=== PATIENT | male | born 1935 | race Caucasian/White ===

== ENCOUNTER 2019-06-04 11:32 | Inpatient (IN) | payer MEDICARE, SELFPAY ==
[2019-06-04] VITALS (21 sets, daily range): BP systolic 77–119; BP diastolic 33–90; PULSE 59–153; RESP 12–27; TEMP 35.9–37.1; O2SAT 92–100; BMI 24.6
--- NOTE | 2019-06-04 | DI.ECHO.S_ITS ---
[facility]---------+ [facility] +---------+ : : [address] : : : : [id number] : : : : Phone: [phone]+ Echocardiogram Report + + :Name: SINDI GALEAS Study Date: 06/05/2019 Height: 69 in : :[facility] Weight: 166 lb : : Gender: Male BSA: 1.9 m2 : :: 1935 Age: 83 yrs BP: 102/49 mmHg: :Reason For Study: AFIB : : Performed By: [facility] Staff : :Referring: MARINO PEREZ : + + Interpretation Summary Left ventricular systolic function is low normal with the ejection fraction visually estimated to be 50-55%. There is a significant dyssynchronous contraction pattern, consistent with a conduction abnormality but no obvious focal wall motion abnormalities. There is mild concentric left ventricular hypertrophy but diastolic function could not be accurately assessed due to contradictory data. The right ventricle is moderately dilated and systolic function is borderline reduced. Right ventricular systolic pressure is estimated to be at least 24 mmHg plus the clinically estimated CVP which cannot be estimated on this exam. The left atrium is moderately dilated and the right atrium is mildly dilated. There is moderate aortic valve sclerosis with mild aortic regurgitation but no aortic stenosis. There is mild tricuspid regurgitation and moderate pulmonic regurgitation. The aortic root and ascending aorta are mildly enlarged. The patient was in normal sinus rhythm during the exam. Procedure: A two-dimensional transthoracic echocardiogram with color flow and Doppler was performed. The study quality was technically difficult. There is no prior echocardiogram noted for this patient. The patient was in normal sinus rhythm during the exam. Left Ventricle: The left ventricle is normal in size. There is mild concentric left ventricular hypertrophy. Left ventricular systolic function is low normal. The ejection fraction is estimated to be 50-55%. There is a significant dyssynchronous contraction pattern, consistent with a conduction abnormality. There are no focal wall motion abnormalities. Diastolic function could not be accurately assessed due to contradictory data. Right Ventricle: The right ventricle is moderately dilated. Right ventricular systolic function is borderline reduced. Atria: The left atrium is moderately dilated. The right atrium is mildly dilated. The interatrial septum is intact with no evidence for an atrial septal defect. Mitral Valve: There is mild mitral annular calcification. The mitral valve leaflets are slightly calcified. There is trace mitral regurgitation. Aortic Valve: The aortic valve is trileaflet. There is moderate aortic valve sclerosis. The aortic valve opens well. There is no aortic valve stenosis. There is mild aortic regurgitation. Tricuspid Valve: The tricuspid valve is normal in structure and function. There is mild tricuspid regurgitation. Right ventricular systolic pressure is estimated to be 24 mmHg plus the clinically estimated CVP which cannot be estimated on this exam. Pulmonic Valve: The pulmonic valve is not well visualized. There is moderate pulmonic regurgitation. Great Vessels: The aortic root is mildly dilated. The ascending aorta is mildly enlarged. The pulmonary artery is normal size. The inferior vena cava was not well visualized. Pericardium/ Pleura There is no pericardial effusion. There is no pleural effusion. MMode/2D Measurements & Calculations LVIDd: 4.7 cm LVOT diam: 2.2 cm LVIDs: 3.4 cm Ao root diam: 4.2 cm FS: 27.7 % Aortic Jxn: 3.5 cm EPSS: 1.3 cm asc Aorta Diam: 3.7 cm IVSd: 1.2 cm LVPWd: 1.2 cm LV lincoln. diameter/BSA (cm/m^2): 2.5 LV sys. diameter/BSA (cm/m^2): 1.8 LA A2 area: 22.1 cm2 RA long axis: 5.7 cm LA A4 area: 26.5 cm2 RA area: 22.8 cm2 LA length (vol): 6.0 cm RA vol: 77.5 ml LA vol: 83.3 ml RA : 40.6 ml/m2 LA vol index: 43.6 ml/m2 TAPSE: 1.8 cm Doppler Measurements & Calculations Ao V2 max: 125.6 cm/sec LVOT Max Miko: 81.9 cm/sec Ao V2 mean: 80.4 cm/sec LV V1 max P.7 mmHg Ao max P.3 mmHg LV V1 VTI: 19.1 cm Ao mean P.1 mmHg ALVARADO(I,D): 2.7 cm2 Ao V2 VTI: 26.3 cm ALVARADO(V,D): 2.4 cm2 sev ratio: 0.73 ALVARADO indexed to BSA (cm^2/m^2): 1.4 MV E max miko: 38.8 cm/sec TR max miko: 246.3 cm/sec MV A max miko: 35.3 cm/sec TR max P.3 mmHg MV E/A: 1.1 PA V2 max: 86.4 cm/sec Med Peak E' Miko: 4.9 cm/sec PA V2 mean: 49.2 cm/sec E/E' med: 8.0 PA mean P.2 mmHg Lat Peak E' Miko: 8.4 cm/sec PA Accel Time: 0.09 sec E/E' lat: 4.6 E/e' average: 6.3 MV dec time: 0.23 sec SV(LVOT): 70.1 ml Reading Physician:SHANNON
--- NOTE | 2019-06-04 11:37 | ED.SOB ---
HPI - SOB/Dyspnea General Chief Complaint: Shortness of Breath/Dyspnea Stated Complaint: SOB, hypotension Time Seen by Provider: 06/04/19 11:37 Source: patient and EMS Mode of arrival: EMS Limitations: no limitations History of Present Illness HPI Narrative: 83-year-old male comes to the emergency department with complaint of shortness of breath. EMS states is heart rates in the 150s. Here in the department he is 72. Was the department he flipped back and/or heart rate of 130 and then flipped back into a sinus rhythm. Patient appears to be in a flutter. Patient has a known history of atrial fibrillation. He has known metastatic melanoma. He is currently supposed to be screaming immunotherapy but this has been held as he has had an infection in his right upper extremity and is on IV antibiotics. Patient's states that he was started on metoprolol for his a fibrillation. Patient complaining of shortness of breath, no chest pain or pressure. He does not feel lightheaded. He does not feel nauseated. He denies any GI or urinary symptoms. No swelling in his extremities. Related Data Home Medications Medication Instructions Recorded Confirmed Lactobacillus acidophilus 2 tab PO DAILY 06/04/19 06/04/19 [Acidophilus] apixaban 5 mg PO BID 06/04/19 06/04/19 calcium carbonate 1,000 mg PO BID PRN 06/04/19 06/04/19 cefazolin in 0.9% sod chloride 2 g IV Q8H 06/04/19 06/04/19 dexamethasone 4 mg PO AC 06/04/19 06/04/19 docusate sodium [Colace] 100 mg PO BID 06/04/19 06/04/19 furosemide 20 mg PO BID 06/04/19 06/04/19 insulin aspart U-100 [Novolog unit SUBCUT PRN 06/04/19 Flexpen U-100 Insulin] ketorolac [Acular] 1 drp EYE-RIGHT QID 06/04/19 06/04/19 levothyroxine 50 mcg PO DAILY 06/04/19 06/04/19 metoprolol succinate 50 mg PO DAILY 06/04/19 06/04/19 polyethylene glycol 3350 17 g PO DAILY PRN 06/04/19 06/04/19 prednisolone acetate (PF) 1 drp EYE-RIGHT BID PRN 06/04/19 06/04/19 tamsulosin 0.4 mg PO DAILY 06/04/19 06/04/19 Allergies Allergy/AdvReac Type Severity Reaction Status Date / Time No Known Drug Allergies Allergy Verified 06/04/19 11:56 Patient History Medical History (Updated 06/04/19 @ 19:18 by Mariia Goldstein RN) Atrial fibrillation (Acute) Drop foot gait (Acute) Headache (Acute) Hypothyroidism (Acute) 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 HEENT: Head normocephalic, atraumatic, EOMI, pupils reactive, face symmetric, moist mucous membranes NECK: Supple, full range of motion CARDIOVASCULAR: Regular rate and rhythm without murmurs, rubs or gallops. No JVD. No swelling in lower extremities. RESPIRATORY: Breath sounds equal bilaterally, no wheezes rales or rhonchi. No tachypnea or accessory muscle use. ABDOMEN: Soft, nontender. Normoactive bowel sounds all 4 quadrants. No guarding or rebound, rigidity, no mass : No CVA tenderness EXTREMITIES: Normal range of motion, no clubbing or edema. Neurovascularly intact NEUROLOGICAL: Cranial nerves II through XII grossly intact. Moving all extremities SKIN: Warm, dry, no petechiae, Initial Vital Signs Initial Vital Signs: Vital Signs Pulse Rate 80 06/04/19 11:40 Respiratory Rate 27 H 06/04/19 11:40 Blood Pressure 108/60 06/04/19 11:40 Pulse Oximetry 100 06/04/19 11:40 Course Orders Ordered: ED Orders 06/04/19 11:38 XR chest 1V Stat EKG-12 Lead Stat 06/04/19 12:55 Complete Blood Count AUTO DIFF Stat Comprehensive Metabolic Panel Stat Magnesium Stat Partial Thromboplastin Time Stat Prothrombin Time INR Stat Thyroid Stimulating Hormone Stat Troponin & CK Cardiac Panel Stat Sodium Chloride (Normal Saline 0.9%) 500 mls @ 21 mls/hr IV CONT ARSALAN Last Admin: 06/04/19 13:34 Dose: 21 mls/hr Documented by: QUINN DILTIAZEM (Diltiazem 125 Mg/125 Ml-D5w) 125 mg in 125 mls @ 5 mls/hr IV TITRATE ARSALAN; Protocol Last Titration: 06/04/19 19:15 Dose: 0 mg/hr, 0 mls/hr Documented by: Admin: 06/04/19 15:49 Dose: 5 mg/hr, 5 mls/hr Documented by: QUINN Potassium Chloride 40 meq/ (Sodium Chloride) 520 mls @ 130 mls/hr IV NOW ONE Stop: 06/04/19 23:59 Last Admin: 06/04/19 20:16 Dose: 130 mls/hr Documented by: EM Cosigned by: MARGARET Discontinued Medications Aspirin (Aspirin Chew) 324 mg PO NOW ONE Stop: 06/04/19 13:58 Last Admin: 06/04/19 14:54 Dose: 324 mg Documented by: QUINN Diltiazem HCl (Cardizem) 10 mg IV NOW ONE Stop: 06/04/19 14:58 Last Admin: 06/04/19 15:48 Dose: 10 mg Documented by: QUINN Sodium Chloride (Normal Saline 0.9%) 1,000 mls @ 1,000 mls/hr IV BOLUS ONE Stop: 06/04/19 12:36 Last Infusion: 06/04/19 13:21 Dose: 0 mls/hr Documented by: Admin: 06/04/19 12:22 Dose: 1,000 mls/hr Documented by: QUINN Potassium Chloride 40 meq/ (Sodium Chloride) 520 mls @ 130 mls/hr IV NOW ONE Stop: 06/04/19 17:56 Last Admin: 06/04/19 14:48 Dose: 130 mls/hr Documented by: QUINN Cosigned by: DARRYL Metoprolol Tartrate (Lopressor) 5 mg IV NOW ONE Stop: 06/04/19 12:00 Last Admin: 06/04/19 12:15 Dose: 5 mg Documented by: QUINN Vital Signs Vital signs: Vital Signs - 8 hr 06/04/19 12:30 06/04/19 14:00 06/04/19 15:00 Pulse Rate 67 63 66 Respiratory Rate 26 H 17 20 Blood Pressure Blood Pressure [Left Arm] 90/42 L 119/90 89/60 L Pulse Oximetry 100 97 92 06/04/19 15:48 Pulse Rate 133 H Respiratory Rate Blood Pressure 100/51 L Blood Pressure [Left Arm] Pulse Oximetry MDM - SOB/Dyspnea Lab Data Attestation: I reviewed the patient's lab results. Result diagrams: 06/04/19 12:55 06/04/19 12:55 Labs: Lab Results 06/04/19 06/04/19 06/04/19 Range/Units 12:55 12:55 12:55 WBC 11.3 H (4.5-11.0) X10^3/uL RBC 3.34 L (4.5-5.9) X10^6/uL Hgb 10.8 L (13.5-17.5) g/dL Hct 31.6 L (41-53) % MCV 94.6 (80-100) fL MCH 32.3 (26-34) PG MCHC 34.1 (30-36) % RDW 18.1 H (11.6-14.8) % Plt Count 198 (150-400) X10^3/uL Neut % (Auto) Not Reportable Lymph % (Auto) Not Reportable [place] % (Auto) Not Reportable Eos % (Auto) Not Reportable Baso % (Auto) Not Reportable Lymph # (Auto) Not Reportable [place] # (Auto) Not Reportable Baso # (Auto) Not Reportable Total Counted 100 Seg Neutrophils % 81.0 H (38-70) % Band Neutrophils % 6.0 (3-7) % Lymphocytes % (Manual) 6.0 L (25-45) % Monocytes % (Manual) 4.0 (2-11) % Metamyelocytes % 2.0 H (-0) % Myelocytes % 1.0 H (-0) % Neutrophils # (Manual) 9831 H (6801-8394) /uL Nucleated RBCs 1 H ( - 0) #/Diff RBC Morphology See below Polychromasia 1+ H Poikilocytosis 1+ H Anisocytosis 1+ H PT 21.7 H (10.1-12.7) SECONDS INR 1.9 H (0.9-1.3) APTT 27 (26.4-36.2) SECONDS Sodium 137 (137-145) mmol/L Potassium 2.9 L (3.4-5.1) mmol/L Chloride 103 (98-107) mmol/L Carbon Dioxide 23 (22-32) mmol/L BUN 27 H (9-20) mg/dL Creatinine 0.70 (0.66-1.25) mg/dL Estimated GFR > 60.0 (>60) mL/min BUN/Creatinine Ratio 38.6 H (6-22) Glucose 302 H (80-110) mg/dL Calcium 7.4 L (8.4-10.2) mg/dL Magnesium (1.6-2.3) mg/dL Total Bilirubin 0.5 (0.2-1.3) mg/dL AST 34 (17-59) IU/L ALT 19 (<50) IU/L Alkaline Phosphatase 195 H (38-126) U/L Total Creatine Kinase (55-170) U/L CK-MB (CK-2) CK-MB (CK-2) Rel Index Troponin I (0.01-0.034) ng/mL Total Protein 4.7 L (6.3-8.2) g/dL Albumin 2.5 L (3.5-5.0) g/dL Globulin 2.2 (1.7-4.1) g/dL Albumin/Globulin Ratio 1.1 (1.0-2.8) TSH (0.47-4.68) uIU/mL 06/04/19 06/04/19 Range/Units 12:55 12:55 WBC (4.5-11.0) X10^3/uL RBC (4.5-5.9) X10^6/uL Hgb (13.5-17.5) g/dL Hct (41-53) % MCV (80-100) fL MCH (26-34) PG MCHC (30-36) % RDW (11.6-14.8) % Plt Count (150-400) X10^3/uL Neut % (Auto) Lymph % (Auto) [place] % (Auto) Eos % (Auto) Baso % (Auto) Lymph # (Auto) [place] # (Auto) Baso # (Auto) Total Counted Seg Neutrophils % (38-70) % Band Neutrophils % (3-7) % Lymphocytes % (Manual) (25-45) % Monocytes % (Manual) (2-11) % Metamyelocytes % (-0) % Myelocytes % (-0) % Neutrophils # (Manual) (1115-7969) /uL Nucleated RBCs ( - 0) #/Diff RBC Morphology Polychromasia Poikilocytosis Anisocytosis PT (10.1-12.7) SECONDS INR (0.9-1.3) APTT (26.4-36.2) SECONDS Sodium (137-145) mmol/L Potassium (3.4-5.1) mmol/L Chloride (98-107) mmol/L Carbon Dioxide (22-32) mmol/L BUN (9-20) mg/dL Creatinine (0.66-1.25) mg/dL Estimated GFR (>60) mL/min BUN/Creatinine Ratio (6-22) Glucose (80-110) mg/dL Calcium (8.4-10.2) mg/dL Magnesium 2.1 (1.6-2.3) mg/dL Total Bilirubin (0.2-1.3) mg/dL AST (17-59) IU/L ALT (<50) IU/L Alkaline Phosphatase (38-126) U/L Total Creatine Kinase 28 L (55-170) U/L CK-MB (CK-2) TNP CK-MB (CK-2) Rel Index TNP Troponin I 0.112 H (0.01-0.034) ng/mL Total Protein (6.3-8.2) g/dL Albumin (3.5-5.0) g/dL Globulin (1.7-4.1) g/dL Albumin/Globulin Ratio (1.0-2.8) TSH 2.11 (0.47-4.68) uIU/mL Imaging Data Chest x-ray: Radiologist's impression: [address] [address] XRay Report Signed Patient: Vanessa Davila KMR#: [id number] : 5Acct:[id number] Age/Sex: 83 / MDate of Service: 06/04/19 Loc: ED Accession Number: [id number] Procedure: XR chest 1V Ordering Provider: Earline Jorge D.O. PROCEDURE: XR CHEST 1V INDICATIONS: fast heart beat, short of breath TECHNIQUE: One view of the chest was acquired. COMPARISON: None. FINDINGS: Surgical changes and devices: There is a right-sided chest port seen, the tip seen near the cavoatrial junction and Lungs and pleura: Lungs are clear. No pleural effusions or pneumothorax. Mediastinum: The cardiac contours are within normal limits. The aorta demonstrates calcification and tortuosity. Bones and chest wall: Age-appropriate bony degenerative changes are seen. No suspicious bony lesions. Overlying soft tissues appear unremarkable. IMPRESSION: No acute cardiopulmonary process is seen. Postoperative and degenerative changes are seen. Dictated by: Jass Hsu M.D. on 06/04/2019 at 11:24 Approved by: Jass Hsu M.D. on 06/04/2019 at 11:25 ECG Data Attestation: I personally reviewed and interpreted this ECG as follows: Interpretation: Sinus rhythm rate of 73 P are 152, QRS of 107 and QTC of 447. Patient has indeterminate ST changes. EKG from shows atrial flutter, rate of 134 QRS of 128 QTC of 372. MDM Narrative Medical decision making narrative: Patient is intermittently in and out of in a regular rhythm that is tachycardic and I suspect atrial flutter although it appeared quite regular and almost SVT like in his telemetry strip from EMS. Patient given 1 dose of metoprolol in the department as his pressure has been tolerating. Patient was given aspirin, potassium is out to be 2.9. This is likely the cause of his irregular rhythm being exacerbated. His troponin is 0.112 I do not have any priors for comparison, this could be secondary to demand ischemia as patient states he has felt short of breath and his heart rate was fast overnight. But he could also be having coronary issues. Patient's TSH is pending. CXR shows no acute process. Case was discussed with Dr. Modi, she reviewed patient's echo and feels Cardizem would be appropriate drip for rate control. We also discussed that he is on Eliquis for history of pulmonary emboli. He has multiple medical issues including an active infection in his upper extremity which he is receiving IV antibiotics, metastatic melanoma with metastases to his brain. And it is unclear what sort of intervention would be used if he needed any from a cardiac standpoint. I spoke with Dr. augustine, gave her cardiology's recommendations and she accepts patient although she would like for him to be more stable with his heart rate 90-100 before he comes to the ICU. Discharge Plan Departure Patient Disposition: Admitted As Inpatient Clinical Impression: Atrial fibrillation with rapid ventricular response Discharge Date/Time: 06/04/19 19:45 Admit Date/Time: 06/04/19 16:01 Admit Provider: Danna Gutiérrez
[2019-06-04] MEDS: METOPROLOL TARTRATE 5 MG/5 ML INJ IV (12:15)
[2019-06-04] MEDS: SODIUM CHLORIDE 0.9% 1,000 ML 1000 ML IV (12:22)
[2019-06-04 13:12] LABS: INR 1.9 (0.9-1.3); Prothrombin Time 21.7 SECONDS (10.1-12.7)
[2019-06-04 13:15] LABS: PTT Partial Thromboplastin Tim 27 SECONDS (26.4-36.2)
[2019-06-04 13:17] LABS: Creatine Kinase 28 U/L (55-170); Hematocrit 31.6 % (41-53); Hemoglobin 10.8 g/dL (13.5-17.5); Magnesium 2.1 mg/dL (1.6-2.3); Mean Corpuscular HGB Conc 34.1 % (30-36); Mean Corpuscular Hemoglobin 32.3 PG (26-34); Mean Corpuscular Volume 94.6 fL (80-100); Platelet Count 198 X10^3/uL (150-400); Red Blood Cell Count 3.34 X10^6/uL (4.5-5.9); Red Cell Distribution Width 18.1 % (11.6-14.8); White Blood Cell Count 11.3 X10^3/uL (4.5-11.0)
[2019-06-04 13:19] LABS: Add Manual Diff / Slide Review YES
[2019-06-04 13:30] LABS: Albumin 2.5 g/dL (3.5-5.0); Albumin Globulin Ratio 1.1 (1.0-2.8); Alkaline Phosphatase 195 U/L (38-126); Aspartate Aminotransferase 34 IU/L (17-59); BUN Creatinine Ratio 38.6 (6-22); Bilirubin Total 0.5 mg/dL (0.2-1.3); Blood Urea Nitrogen 27 mg/dL (9-20); Calcium 7.4 mg/dL (8.4-10.2); Carbon Dioxide 23 mmol/L (22-32); Chloride 103 mmol/L (98-107); Estimated Glomerular Filt Rate > 60.0 mL/min (>60); Globulin 2.2 g/dL (1.7-4.1); Glucose 302 mg/dL (80-110); HEMOLYSIS < 15 (0-50); Potassium 2.9 mmol/L (3.4-5.1); Sodium 137 mmol/L (137-145); Total Protein 4.7 g/dL (6.3-8.2); Troponin I 0.112 ng/mL (0.01-0.034)
[2019-06-04] MEDS: SODIUM CHLORIDE 0.9% 500 ML 21 ML IV (13:34)
--- NOTE | 2019-06-04 13:34 | PC.NURSE ---
I assisted patient to stand at bedside with Karly MENDES while changing out his bedding which had urine on it.
[2019-06-04 13:37] LABS: Alanine Aminotransferase 19 IU/L (<50)
[2019-06-04 13:58] LABS: Neutrophils Absolute Manual 9831 /uL (3000-5900); Nucleated Red Blood Cells 1 #/Diff; Total Cells Counted 100
[2019-06-04 13:59] LABS: Anisocytosis 1+; Poikilocytosis 1+; Polychromasia 1+
[2019-06-04] MEDS: POTASSIUM CHLORIDE 40 MEQ in SODIUM CHLORIDE 0.9% 500 ML 130 ML IV ×2 (14:48→20:16)
[2019-06-04] MEDS: ASPIRIN 81 MG CHEW TAB 324 MG PO (14:54)
[2019-06-04] MEDS: dilTIAZem 5 MG/ML SDV 10 MG IV (15:48)
[2019-06-04] MEDS: DILTIAZEM 125 MG/125 ML PIGGYBACK IV (15:49)
[2019-06-04 17:10] LABS: Thyroid Stimulating Hormone 2.11 uIU/mL (0.47-4.68)
--- NOTE | 2019-06-04 19:46 | PC.NURSE ---
Patient constantly bouncing in and out of A. Flutter at rate of 120-150 and Sinus Emanuel at 50-60BPM. This is an ongoing problem per patient and his . Also reports increasing shortness of breath.
--- NOTE | 2019-06-04 20:39 | PC.NURSE ---
Addendum entered by Mariia Goldstein R.N. 06/04/19 22:32: 2100 - Suppository given. Pt reports urge to have BM shortly following administration. Large soft formed stool. Pt denies urge to void at this time. IV infusing. Original Note: 1829 - Pt to room for ER. Transfer to bed via slider board. Pt is a poor historian. Admission assessment done with pt's assistance. Pt with multiple skin issues. Pictures taken. Wounds to right UE cleansed and redressed. 1914 - Pt BP down to 87/33, HR 60. Cardizem gtt tirated to off. Pt denies lightheadedness or chest pain. Potassium infusion complete. Monitor.
--- NOTE | 2019-06-04 21:18 | PM.HP.1 ---
History of Present Illness History of Present Illness Date Patient Seen: 06/04/19 Time Patient Seen: 19:50 Chief complaint: SOB, hypotension Narrative: Mr. 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 The patient currently resides at [facility] for rehabilitation. The patient is a difficult historian and his is at bedside to facilitate obtaining medical history. He states he developed prep heartbeat with a shortness of breath this afternoon. Has a history of atrial fibrillation and is on anticoagulation with Eliquis related to history of pulmonary embolism. He reports no complaints of chest pain, nausea or vomiting. The patient's clinical picture is complicated by ongoing steroid therapy for metastatic melanoma with metastases to the brain and associated hyperglycemia. He has chronic septic olecranon bursitis preventing continuation of his prior immunotherapy. He has 3 wounds to the right upper extremity reportedly from surgical biopsy last Tuesday with a stitch in place without redness or inflammation. The patient reports no complaints of fevers or chills and denies headaches or visual changes. He has no nasal congestion or sore throat. He has no chest pain but reports shortness of breath with rapid heart rate. He denies cough or wheezing. He describes baseline shortness of breath but attributes it to being inactive and has been on bed rest at [facility]. Denies abdominal pain but reports constipation having only 1 small bowel movement in the last week. He denies urinary symptoms and endorses nocturia 4 times nightly. Patient has right footdrop and has had frequent falls. He has a walker and cane at home and has had an AFO constructed which he is not yet received. Upon arrival in the ER the patient is afebrile with temperature 97.3? with heart rate of 153, blood pressure of 94/52, respirations of 25 saturating 100% and unknown if on supplemental oxygen. A chest x-ray was obtained which finds no acute cardiopulmonary findings and notes implanted port right upper chest. On laboratory analysis he has white count of 11.3, hemoglobin 10.8, hematocrit of 31.6 with platelets of 198. He has increased neutrophils at 81%. His PT is 21.7 with an INR of 1.9 and a PTT of 27. On chemistry he is notably low on potassium at 2.9 and appears dry with a BUN of 27 with a creatinine of 0.7. His nonfasting glucose is 302. His magnesium is 2.1. His LFTs are within normal limits save for alkaline phosphatase elevated at 195. His troponin is elevated at 0.112. In the ER the patient received aspirin 325 mg, metoprolol 5 mg IV push, with transient resolution of rhythm only to return back in atrial fibrillation and given diltiazem 10 mg IV and started on a drip at 5 mg. He also received normal saline 1 L and was treated with potassium 40 mEq. Patient is admitted to the medicine service with atrial fibrillation, shortness of breath and hypokalemia. Patient History Medical History (Updated 06/04/19 @ 21:42 by YUMI Fields) Atrial fibrillation (Acute) Cataract (Acute) Drop foot gait (Acute) Headache (Acute) Hypothyroidism (Acute) Malignant melanoma (Acute) Melanoma metastatic to brain (Acute) Pulmonary embolism (Acute) Septic olecranon bursitis of right elbow (Acute) Status post gamma knife treatment (Acute) Surgical History (Updated 06/04/19 @ 21:42 by YUMI Fields) History of local excision of skin lesion (Acute) History of vascular access device (Acute) Family & Social History Family History (Updated 06/04/19 @ 21:45 by YUMI Fields) Father Alcohol abuse Mother Obesity Brother No known problems Sister No known problems Social History: household members other Prior Living Arrangements 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 Patient is presently a patient at [facility] (formerly [facility]) for rehabilitation. Patient has difficulty recalling family medical history but denies family history of cancer, hypertension, heart or kidney disease. Smoking: Patient endorses a 30 year pack history smoking 1 pack per day from age 19 to age 49. Alcohol: Patient endorses occasional alcohol drinking Tequila. Substance use: Patient denies recreational pharmaceuticals, herbal or cannabis products. Advanced directives: The patient has formal advanced directives which is will bring in. At this time the patient states his wish to be FULL CODE, but does not wish to have prolonged aggressive treatment or long-term life support. He designates his Rocio Varela, to be his surrogate decision maker. Meds Home Medications and Allergies Home Medications Medication Instructions Recorded Confirmed Type Lactobacillus acidophilus 2 tab PO DAILY 06/04/19 06/04/19 History [Acidophilus] apixaban 5 mg PO BID 06/04/19 06/04/19 History calcium carbonate 1,000 mg PO BID PRN 06/04/19 06/04/19 History cefazolin in 0.9% sod chloride 2 g IV Q8H 06/04/19 06/04/19 History dexamethasone 4 mg PO AC 06/04/19 06/04/19 History docusate sodium [Colace] 100 mg PO BID 06/04/19 06/04/19 History furosemide 20 mg PO BID 06/04/19 06/04/19 History insulin aspart U-100 [Novolog unit SUBCUT PRN 06/04/19 History Flexpen U-100 Insulin] ketorolac [Acular] 1 drp EYE-RIGHT QID 06/04/19 06/04/19 History levothyroxine 50 mcg PO DAILY 06/04/19 06/04/19 History metoprolol succinate 50 mg PO DAILY 06/04/19 06/04/19 History polyethylene glycol 3350 17 g PO DAILY PRN 06/04/19 06/04/19 History prednisolone acetate (PF) 1 drp EYE-RIGHT BID PRN 06/04/19 06/04/19 History tamsulosin 0.4 mg PO DAILY 06/04/19 06/04/19 History Allergies Allergy/AdvReac Type Severity Reaction Status Date / Time No Known Drug Allergies Allergy Verified 06/04/19 11:56 Review of Systems Review of Systems ROS Unobtainable: All systems reviewed & are unremarkable except as noted in HPI and below Exam Vital Signs (past 8 hours): - 06/04/19 14:00 06/04/19 15:00 06/04/19 15:48 Pulse Rate 63 66 133 H Respiratory Rate 17 20 Blood Pressure 100/51 L Blood Pressure [Left Arm] 119/90 89/60 L Pulse Oximetry 97 92 06/04/19 16:20 06/04/19 16:33 06/04/19 16:50 Pulse Rate 67 59 L 75 Respiratory Rate 19 19 22 Blood Pressure Blood Pressure [Left Arm] 85/55 L 84/52 L 92/54 L Pulse Oximetry 100 94 97 06/04/19 17:20 06/04/19 17:50 Pulse Rate 73 74 Respiratory Rate 22 17 Blood Pressure Blood Pressure [Left Arm] 90/48 L 93/47 L Pulse Oximetry 100 100 Oxygen Delivery Method Room Air Narrative Exam Narrative: GENERAL APPEARANCE: well developed, well nourished, in no acute distress. HEENT: Normocephalic, PERRLA, conjunctiva clear, EOMs intact without nystagmus, no sinus tenderness to percussion, no rhinorrhea, mucous membranes are moist and pink without lesions or exudate. NECK/THYROID: neck supple, no JVD, no carotid bruit, no thyromegaly, trachea midline. LYMPH NODES: no cervical or supraclavicular lymphadenopathy. SKIN: [place], warm and dry, multiple areas of ecchymosis, healing skin tear right christian, healing surgical rooms right forearm,pressure sores bilateral buttocks, small ulceration heel. HEART: regular rate and rhythm, S1-S2, no murmur, no rubs or gallops, brisk capillary refill, trace pedal edema LUNGS: clear to auscultation bilaterally, no coarseness crackles or wheezing, positive nonproductive cough on deep inspiration. CHEST: Symmetrical movement, no accessory muscle use, no pain to AP and lateral compression. ABDOMEN: Soft, no distention, dull to percussion, left lower quadrant abdominal tenderness, no guarding or peritoneal signs, no organomegaly, no flank or suprapubic tenderness, active bowel tones. BACK: Normal curvature, nontender to palpation, no CVA tenderness on percussion EXTREMITIES: moves all extremities, strength is 5/5 and symmetrical, no deformities or joint effusions. NEUROLOGIC: AAO x person place time and situation, impaired memory and recall, cranial nerves II-XII grossly intact, sensation intact to light touch, hearing grossly normal to speech. PSYCH: alert, pleasant and cooperative, good eye contact, appropriate with stable behavior Objective Labs Result Diagrams: 06/04/19 12:55 06/04/19 12:55 Labs: Laboratory Results - last 24 hr 06/04/19 06/04/19 06/04/19 12:55 12:55 12:55 WBC 11.3 H RBC 3.34 L Hgb 10.8 L Hct 31.6 L MCV 94.6 MCH 32.3 MCHC 34.1 RDW 18.1 H Plt Count 198 Neut % (Auto) Not Reportable Lymph % (Auto) Not Reportable [place] % (Auto) Not Reportable Eos % (Auto) Not Reportable Baso % (Auto) Not Reportable Lymph # (Auto) Not Reportable [place] # (Auto) Not Reportable Baso # (Auto) Not Reportable Total Counted 100 Seg Neutrophils % 81.0 H Band Neutrophils % 6.0 Lymphocytes % (Manual) 6.0 L Monocytes % (Manual) 4.0 Metamyelocytes % 2.0 H Myelocytes % 1.0 H Neutrophils # (Manual) 9831 H Nucleated RBCs 1 H RBC Morphology See below Polychromasia 1+ H Poikilocytosis 1+ H Anisocytosis 1+ H PT 21.7 H INR 1.9 H APTT 27 Sodium 137 Potassium 2.9 L Chloride 103 Carbon Dioxide 23 BUN 27 H Creatinine 0.70 Estimated GFR > 60.0 BUN/Creatinine Ratio 38.6 H Glucose 302 H Calcium 7.4 L Magnesium Total Bilirubin 0.5 AST 34 ALT 19 Alkaline Phosphatase 195 H Total Creatine Kinase CK-MB (CK-2) CK-MB (CK-2) Rel Index Troponin I Total Protein 4.7 L Albumin 2.5 L Globulin 2.2 Albumin/Globulin Ratio 1.1 TSH 06/04/19 06/04/19 12:55 12:55 WBC RBC Hgb Hct MCV MCH MCHC RDW Plt Count Neut % (Auto) Lymph % (Auto) [place] % (Auto) Eos % (Auto) Baso % (Auto) Lymph # (Auto) [place] # (Auto) Baso # (Auto) Total Counted Seg Neutrophils % Band Neutrophils % Lymphocytes % (Manual) Monocytes % (Manual) Metamyelocytes % Myelocytes % Neutrophils # (Manual) Nucleated RBCs RBC Morphology Polychromasia Poikilocytosis Anisocytosis PT INR APTT Sodium Potassium Chloride Carbon Dioxide BUN Creatinine Estimated GFR BUN/Creatinine Ratio Glucose Calcium Magnesium 2.1 Total Bilirubin AST ALT Alkaline Phosphatase Total Creatine Kinase 28 L CK-MB (CK-2) TNP CK-MB (CK-2) Rel Index TNP Troponin I 0.112 H Total Protein Albumin Globulin Albumin/Globulin Ratio TSH 2.11 Assessment & Plan Assessment & Plan narrative: This is an 83-year-old male patient with multiple medical problems who presents to the ER with atrial fibrillation with RVR and shortness of breath, hypokalemia likely precipitating atrial fibrillation, hyperglycemia and Lasix therapy likely precipitating hypokalemia. 1. Persistent atrial fibrillation with RVR, acute, present on admission, active. -patient with onset of rapid AFib with shortness of breath today with a prior history of atrial fibrillation requiring previous treatment for resolution of rhythm. -patient takes metoprolol succinate 50 mg daily for rhythm control. . -patient is found to be hypokalemic on Lasix therapy without potassium repletion, potassium is 2.9 likely precipitating his arrhythmia, magnesium is 2.1. -in the ER the patient received metoprolol 5 mg with transient conversion and subsequent return to atrial fibrillation treated with KCl 40 mEq and diltiazem 10 mg IV followed by continuous infusion with hypotension, patient received 1 L normal saline bolus. -the patient is admitted to the ICU on a diltiazem drip. Diltiazem infusion discontinue at 6:15 p.m. following conversion to sinus rhythm and blood pressure of 87/53. -ordered KCl 40 mEq IV, recheck BMP and Mag level at midnight. -normal saline 75 cc/hour infusing with potassium at 133 cc per hour for rehydration. Will closely monitor fluid status. -metoprolol 12.5 mg p.o. x1 when blood pressure improves then continue metoprolol succinate 50 mg daily. 2. Elevated troponin, acute, present on admission, active -patient's elevated troponin at 0.112 likely related to demand ischemia in the absence of chest pain with no ischemia or infarct on EKG. -Recheck troponin at midnight and then as needed. 3. Current use long-term anticoagulation, chronic, present on admission, active. -patent with history of paroxysmal atrial fibrillation and prior history of pulmonary emboli. -continue current regimen of apixaban 5 mg twice daily. 4. Hypokalemia, acute, present on admission, active. -the patient is presently on Lasix 20 mg twice daily and appears clinically dry. Trace bilateral lower extremity edema, no history of CHF, lungs clear to auscultation, chest x-ray without pulmonary edema and no cardiomegaly. -hold Lasix, replete potassium, 40 mEq given in ER additional 40 mEq ordered in ICU. -recheck BMP for adequacy of repletion at midnight and with morning labs. 5. Hyperglycemia, steroid induced, chronic, present on admission, active. -the patient receives dexamethasone 4 mg p.o. 3 times daily for treatment of metastatic brain tumor. -glucose on admission is 302 without history of diabetes prior to steroid therapy. Elevated blood sugar likely increasing diuresis and potassium loss. -blood sugar checks AC and HS, covered with correctional insulin low-dose range. -heart healthy diet with constant carbohydrate diet medium range. 6. Septic olecranon bursitis, chronic, present on admission, stable. -continue cefazolin 2 g IV every 8 hours. 7. Malignant melanoma, status post excision, active. -patient with metastatic brain lesion currently on dexamethasone therapy. -status post gamma knife procedure, subsequent course of immunotherapy interrupted related to problem #5 above. -skin biopsies right arm with retained suture, wound healing cleanly without signs of infection. 8. Constipation, chronic, present on admission, active. -patient with left lower quadrant abdominal pain on palpation, patient reports very small stool 3 days ago, stool clean from patient's buttock upon admission to ICU. -docusate 100 mg twice daily, MiraLax 17 g daily as needed, Dulcolax 10 mg p.r. x1 now and daily as needed. 9. Hypothyroidism, acquired, chronic, stable -continue current therapy of levothyroxine 50 mcg daily. 10. Frequent falls, acute, present on admission, active. -patient with a healing skin tear right christian without active bleeding, multiple ecchymotic areas. -patient with right foot drop, AFO has been constructed but not yet picked up. -PT and OT to evaluate and treat. 11. Pressure wounds, buttock is and heels, prior to admission, active. -turn reposition patient every 2 hours, float heels on pillows -barrier cream to wounds on buttock and heel. -out of bed to chair for meals. PTE prophylaxis: Bilateral SCDs, anticoagulated on Eliquis. The patient is admitted to the hospital for management of multiple interacting medical problems, severity symptoms and risk of complications and adverse events. The patient is admitted as observation status with expected length of stay to be less than 2 midnights. Scores GCS Tera coma scale eye opening: Spontaneous Tera coma scale verbal response: Orientated [place] coma scale motor response: Obey commands Tera coma scale total score: 15 Quality VTE Deep Vein Thrombosis/Pulmonary Embolism Present on Admission: Yes
[2019-06-04] MEDS: DOCUSATE 100 MG CAPSULE PO (21:19)
[2019-06-04] MEDS: BISACODYL 10 MG SUPP PR (21:19)
[2019-06-04] MEDS: SODIUM CHLORIDE 0.9% 1,000 ML 75 ML IV (21:20)
[2019-06-04] MEDS: KETOROLAC 0.5% OPHTH DROPS 5 ML 1 DROPS EYE-RIGHT (21:20)
[2019-06-04] MEDS: APIXABAN 5 MG TABLET PO (21:22)
[2019-06-04] MEDS: INSULIN ASPART 100 UNIT/ML INSULN PEN SUBCUT (21:22)
[2019-06-04] MEDS: CEFAZOLIN 2 GM/100 ML FROZ.PIGGY IV (21:22)
[2019-06-05] VITALS (21 sets, daily range): BP systolic 74–135; BP diastolic 31–72; PULSE 56–144; RESP 14–28; TEMP 36.2–36.6; O2SAT 92–97; BMI 24.7
[2019-06-05 00:03] LABS: Magnesium 1.9 mg/dL (1.6-2.3)
[2019-06-05 00:04] LABS: BUN Creatinine Ratio 33.8 (6-22); Blood Urea Nitrogen 27 mg/dL (9-20); Calcium 7.2 mg/dL (8.4-10.2); Carbon Dioxide 24 mmol/L (22-32); Chloride 109 mmol/L (98-107); Estimated Glomerular Filt Rate > 60.0 mL/min (>60); Glucose 225 mg/dL (80-110); HEMOLYSIS < 15 (0-50); Potassium 4.1 mmol/L (3.4-5.1); Sodium 139 mmol/L (137-145)
[2019-06-05 00:16] LABS: Troponin I 0.079 ng/mL (0.01-0.034)
--- NOTE | 2019-06-05 01:10 | PC.NURSE ---
Addendum entered by Tammie Varma R.N. 06/05/19 04:46: Had another short episode of self limiting A-Fib, YUMI Russell aware and orders received around 0300. Took over an hour to get med verified by off site pharmacy and administer. Bladder scanned for 355ml urine, requested pt void and he did UA obtained and sent. Brief on Original Note: Had 7min of A-fib RVR self limiting up to 120's then back to 60's SR
[2019-06-05] MEDS: SODIUM CHLORIDE 0.9% 250 ML IV ×2 (02:04→03:15)
[2019-06-05] MEDS: METOPROLOL IR 25 MG TABLET 12.5 MG PO ×3 (04:20→19:57)
[2019-06-05 04:49] LABS: Hematocrit 28.6 % (41-53); Hemoglobin 9.8 g/dL (13.5-17.5); Mean Corpuscular HGB Conc 34.5 % (30-36); Mean Corpuscular Hemoglobin 32.8 PG (26-34); Platelet Count 176 X10^3/uL (150-400); Red Blood Cell Count 3.01 X10^6/uL (4.5-5.9); Red Cell Distribution Width 17.9 % (11.6-14.8)
[2019-06-05 04:50] LABS: Add Manual Diff / Slide Review YES
[2019-06-05 04:53] LABS: BUN Creatinine Ratio 37.1 (6-22); Blood Urea Nitrogen 26 mg/dL (9-20); Calcium 7.1 mg/dL (8.4-10.2); Carbon Dioxide 25 mmol/L (22-32); Chloride 111 mmol/L (98-107); Estimated Glomerular Filt Rate > 60.0 mL/min (>60); Glucose 156 mg/dL (80-110); HEMOLYSIS < 15 (0-50); Potassium 3.2 mmol/L (3.4-5.1); Sodium 137 mmol/L (137-145)
[2019-06-05 04:56] LABS: Bacteria Urine None Seen; RBC Urine None Seen (0-5/HPF); WBC Urine None Seen (0-5/HPF)
[2019-06-05 04:57] LABS: Appearance Urine UA CLEAR; Bilirubin Urine UA NEGATIVE (NEGATIVE); Color Urine UA YELLOW; Glucose Urine UA TRACE g/dL (Negative); Ketones Urine UA NEGATIVE (NEGATIVE); Leukocyte Esterase Urine UA NEGATIVE (NEGATIVE); Nitrite Urine UA NEGATIVE (Negative); Occult Blood Urine UA NEGATIVE (Negative); Protein Urine UA NEGATIVE (Negative); Urobilinogen Urine UA 0.2 E.U./dL (0.2); pH Urine UA 6.5 (4.5-8.0)
[2019-06-05 05:07] LABS: Culture Indicated Urine Cult Not Indicated; Urine Comments Microscopic Normal
[2019-06-05] MEDS: CEFAZOLIN 2 GM/100 ML FROZ.PIGGY IV ×3 (05:21→22:21)
[2019-06-05 05:30] LABS: Magnesium 1.9 mg/dL (1.6-2.3)
[2019-06-05 05:46] LABS: Nucleated Red Blood Cells 1 #/Diff
[2019-06-05 05:47] LABS: Anisocytosis 2+
[2019-06-05] MEDS: CALCIUM CARBONATE 500 MG TAB 1000 MG PO (05:49)
[2019-06-05] MEDS: SODIUM CHLORIDE 0.45% 1,000 ML 100 ML IV (05:52)
[2019-06-05] MEDS: POTASSIUM CHLORIDE 60 MEQ in SODIUM CHLORIDE 0.9% 500 ML 88.333 ML IV (05:58)
[2019-06-05] MEDS: LEVOTHYROXINE 50 MCG TABLET PO (06:02)
[2019-06-05] MEDS: INSULIN ASPART 100 UNIT/ML INSULN PEN SUBCUT ×4 (08:35→20:35)
[2019-06-05] MEDS: KETOROLAC 0.5% OPHTH DROPS 5 ML 1 DROPS EYE-RIGHT ×4 (08:39→20:39)
[2019-06-05] MEDS: dexAMETHasone 4 MG TABLET PO ×3 (08:39→16:49)
[2019-06-05] MEDS: APIXABAN 5 MG TABLET PO ×2 (08:41→19:57)
[2019-06-05] MEDS: TAMSULOSIN 0.4 MG CAPSULE PO (08:42)
[2019-06-05] MEDS: POLYETHYLENE GLYCOL 3350 17 GM POWD.PACK PO (08:42)
[2019-06-05] MEDS: DOCUSATE 100 MG CAPSULE PO ×2 (08:42→19:56)
--- NOTE | 2019-06-05 10:21 | DIET.PN ---
Dietary Progress Note Assessment: 83y M admitted for SOB and hypertension referred to nutrition for Ezequiel score 14. Pt rehabbing at [facility], receives CCD meals there. Pt has hyperglycemia (156-225) r/t chronic steroid use to manage malignant melanoma met to brain. Pt is chair/bed bound c mild dementia. These factors contribute to unhealing wounds on heels and buttocks. HT: 175.2cm WT: 76.1kg BMI: 24.8 Labs: BG 156-225 H, TP 4.7 L, Alb 2.5 L, hgb 9.8 L, K+ 3.2 L, Calcium 7.1 L MNA: 10 at risk for malnutrition Ezequiel: [address] Nutrition Diagnosis: increased nutrient needs (PRO) r/t unhealing wounds on buttocks and heels aeb chronic steroid use causing hyperglycemia combined c limited mobility and mild dementia, Ezequiel score [address] Interventions: 1. PRO c each meal 2. Dewey bid to support wound healing 3. tight BG control keeping <200 to support collagen formation Diet Order: HH/CCD EER: 2,000 kcal, 90g PRO (1.2g/kg wounds), 2.3 L fluids Monitoring/Evaluations: Dewey acceptance, POs, consider ensure ONS if POs <75%
--- NOTE | 2019-06-05 10:45 | PT.IIE ---
Surgical History (Last Updated 06/04/19 @ 21:42 by YUMI Fields) History of local excision of skin lesion (Acute) History of vascular access device (Acute) Medical History (Last Updated 06/04/19 @ 21:42 by YUMI Fields) Atrial fibrillation (Acute) Cataract (Acute) Drop foot gait (Acute) Headache (Acute) Hypothyroidism (Acute) Malignant melanoma (Acute) Melanoma metastatic to brain (Acute) Pulmonary embolism (Acute) Septic olecranon bursitis of right elbow (Acute) Status post gamma knife treatment (Acute) Physical Therapy Inpatient Evaluation/Re-Eval M1 PT/OT-IP Prior Functional Status Start: 06/05/19 12:32 Freq: NEEDED Status: Active Protocol: Document 06/05/19 10:45 AB (Rec: 06/05/19 12:48 AB [id number]) Medical Review Prior Functional Status Medical History Reviewed Yes Communication able to make needs known but with confusion Mobility and Gait per spouse: pt was independent with all mobilities and ambulation without AD prior to april of this year. pt unable to give accurate infor and is also a poor historian. Prior Functional Level (Other details) spouse stated that pt started to have problems last Apr 26, 2019 when he had his cataract surgery. stated that he fell and went to [place] due to his heart. from there, he went to [facility] but has to go back to [place] because of something [place] did not do. spouse also mentioned, pt going to seen his manager dairy and having an AFO order for R foot drop. pt stated that from [place] he went to [facility] and then to [facility]. spouse stated that pt has not been using his AFO due to his R ankle injury. but when asked what injury, spouse and pt was unable to provide information . Social History Household Members spouse Living Arrangements House Number of Floors (Floors) Two Floors Number of Stairs To Enter/Railing? no steps to enter from the garage; pt stays on main level of the house Home Environment Standard Height Toilet,Tub/ Shower Home Equipment Front Wheel Walker,Four Wheel Walker,Manual Wheelchair M2 PT-IP Current Condition Start: 06/05/19 12:32 Freq: NEEDED Status: Active Protocol: Document 06/05/19 10:45 AB (Rec: 06/05/19 12:48 AB [id number]) Physical Therapy Current Condition Current Condition Evaluation Date 06/05/19 Treatment Diagnosis A-fib; difficulty in walking Onset Date 06/04/19 Precautions Brace spouse stated that pt has AFO but is at [facility] Other Precautions Falls M3 PT-IP Subjective Start: 06/05/19 12:32 Freq: NEEDED Status: Active Protocol: Document 06/05/19 10:45 AB (Rec: 06/05/19 12:48 AB [id number]) Subjective Physical Therapy Visit Type Type Initial Evaluation Visit Start Time 10:45 Visit Stop Time 11:39 Total Visit Minutes 54 Number of SHEEP SHEARER Visits 0 Physical Therapy Visit Comments Patient Comments pt agreeable to do PT Therapy Pain Assessment Pain Present Pain Present Denied Pain M4 PT-IP Mobility and Gait Start: 06/05/19 12:32 Freq: NEEDED Status: Active Protocol: Document 06/05/19 10:45 AB (Rec: 06/05/19 12:48 AB [id number]) PT-Bed Mobility Assessment Sit to Supine Sit to Supine Contact Guard Assistance,1 Person Assistance Scooting Scooting to Edge of Bed Minimal Assistance PT-Transfer Assessment Sit to and From Stand Sit to and from Stand Maximum Assistance,2 Person Assistance,Use of Upper Extremities Equipment Transfer Assistive Device Gait Belt,Front Wheeled Walker Orthotic/Prosthetic Devices or Brace: No Transfers Transfer Destination Bed Transfer Technique Stand Step Pivot Transfer Ability Level of Assist Maximum Assistance,2 Person Assistance,Use of Upper Extremities Comments Mobility Comments pt sitting on chair. completed sit to stand max A x 1-2 and max cues. pt was able to stand for ~ 15 sec and has to sit back down with c/o dizziness. BP: 135/79 attempted sit to stand again x 3 attempts requiring max A x 2 and max cues. pt easily gets anxious and confused and has difficulty following directions when he gets agitated affecting level of assistance. BP monitored was stable throughout the session. pt completed stand step pivot transfer using FWW chair to bed max A x 2 and max cues . completed sit to supine CGA. positioned in bed. call light and table placed within reach. Gait Assessment Comments Gait Comments able to take small steps for transfers. 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 Specialist Impaired Gross Range of Motion Lower Extremity ROM Assessment Within Functional Limits Strength Lower Extremity Strength Assessment Bilaterally Impaired Hip 3-/5 Knee 3+/5 Ankle 3-/5 Muscle Tone Muscle Tone WNL Yes M6 PT-IP Treatment Start: 06/05/19 12:32 Freq: NEEDED Status: Active Protocol: Document 06/05/19 10:45 AB (Rec: 06/05/19 12:48 AB [id number]) Physical Therapy Treatment Education Education Provided Safety M7 PT-IP Assessment and Plan Start: 06/05/19 12:32 Freq: NEEDED Status: Active Protocol: Document 06/05/19 10:45 AB (Rec: 06/05/19 12:48 AB [id number]) PT Summary Assessment and Plan Potential Rehabilitation Potential Fair Status of Condition at Evaluation Evolving Summary Impairments Pain,ROM,Strength,Balance, Coordination,Sensation,Tone, Cognition,Bed Mobility, Transfers,Gait,Activity Tolerance Assessment Summary pt requiring 2 person max A with mobility and unable to tolerate much activity. pt gets anxious easily with confusion affecting following instructions. pt will benefit from SNF rehab to improve strength and mobility Goals Bed Mobility Goal Independent Transfer Goal Minimal Assistance,Front Wheeled Walker Gait Goal Minimal Assistance,Front Wheel Walker Gait Distance 50 Days to Meet Goals 10 Frequency of Treatment Frequency Of Treatment Once a Day Treatment Plan Physical Therapy Treatment Plan Bed Mobility Training,Transfer Training,Gait Training, Therapeutic Exercise,Balance Retraining,Discharge Planning, Neuromuscular Re-ed, Coordination Retraining,Manual Therapy Recommendations To Nursing Amount of Assist Needed 2 Person Assist Discharge Recommendations PT Discharge Recommendations SNF Rehab
--- NOTE | 2019-06-05 12:14 | CM.DANOTE ---
Discharge Planning/Care Management DCP: assessment: case received, EMR reviewed and met now with pt and his Rocio. Introduced self and role.j Pt is an 83 year old male who admitted yesterday late afternoon to care of hospitalist team. Payer: Medicare [facility] Admission status: INPT: confirmed by UR RN Manish. Both confirm that pt has been over at [facility] and expects to go back there when he is stable to leave the hospital. He will continue his stay under his Medicare snf benefit. OT and PT will be seeing pt here and Rocio has just brought in his orthotic to help in the therapy process. P: return to [facility] when stable for same. PASRR: may be needed as PASRR rules have changed recently even though pt is returning to the facility. DCP team will check in with [facility] and proceed accordingly. CM Discharge Assessment Start: 06/05/19 12:12 Freq: Status: Active Protocol: Document 06/05/19 12:12 ITV (Rec: 06/05/19 12:14 ITV [id number]) Discharge Planning Assessment Advance Directives? No History Provided By Patient,Family Member,Medical Record Prior Living Arrangements Skilled Nurse Facility Comment has been at [facility] undergoing care including IV antibiotics under his Medicare benefit. Plans to return there when stable to leave the hospital. Rocio confirms [facility] is keeping his bed for him. Facility Name Admitted From: [facility] Willing to Return to Facility? Yes Is patient alert and oriented? Yes Whiteboard Updated in Patient Room with Yes name and ext. # of Lead Manufacturing Technician Review Status In Process
[2019-06-05 12:50] LABS: Hemoglobin A1C% w Est Avg Glu 8.2 % (4.0-6.0)
[2019-06-05 13:46] LABS: Blood Urea Nitrogen 27 mg/dL (9-20); Calcium 7.9 mg/dL (8.4-10.2); Carbon Dioxide 23 mmol/L (22-32); Chloride 109 mmol/L (98-107); Estimated Glomerular Filt Rate > 60.0 mL/min (>60); Glucose 199 mg/dL (80-110); HEMOLYSIS < 15 (0-50); Potassium 4.3 mmol/L (3.4-5.1); Sodium 138 mmol/L (137-145)
--- NOTE | 2019-06-05 15:14 | OT.IP.TRT ---
Occupational Therapy Treatment Note M3 OT- IP Subjective and Pain Start: 06/05/19 15:13 Freq: Status: Active Protocol: Document 06/05/19 15:13 [facility] (Rec: 06/05/19 15:14 [facility] [id number]) OT- Subjective Occupational Therapy Visit Type Type Patient Refusal Notes Pt states too tired and not wanting to do OT eval at this time. Able to talk to pt and regarding prior level of care and needs. No charge.
--- NOTE | 2019-06-05 16:22 | P.PN_ITS ---
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 The patient is resting in bed comfortably. He is in sinus rhythm and has been titrated off diltiazem and short acting metoprolol has been started due to labile BP. He has no complaints overall and his shortness of breath has resolved. He denies headache, sore throat, cough, shortness of breath, chest pain, abdominal pain, nausea, vomiting, fever, chills, dysuria, or diarrhea. He endorses constipation but has had several BM's. He seems to be emotionally labile and gets overwhelmed and agitated when his spouse asks various questions. He is alert and oriented to person only. He is voiding and eliminating without difficulty. He is up with significant amount of assistance. Exam Vital Signs (past 8 hours): - 06/05/19 12:07 06/05/19 14:47 Temperature 97.4 F L Pulse Rate 60 Respiratory Rate 28 H Blood Pressure 135/72 103/63 Pulse Oximetry 97 Oxygen Delivery Method Room Air Oxygen Flow Rate 0 Narrative Exam Narrative: General: Elderly male lying in bed and in no acute distress, appears chronically ill, alert and oriented to person only, emotionally lable but otherwise appropriately interactive. HEENT: Normocephalic, atraumatic. External ears without defect. Pupils equal, round, and reactive to light. Anicteric sclerae, moist conjunctivae, and no lid lag. Oropharynx free of erythema and cobble stoning with moist mucosa. Neck: Poor skin turgor with dry skin and full range of motion. No jugular venous distension. No lymphadenopathy or thyromegaly. Cardiovascular: Regular rate and rhythm without murmurs, rubs, or gallops appreciated. Pulmonary: Clear to auscultation bilaterally without crackles, wheezes, or rhonchi. Normal respiratory effort with no use of accessory muscles. Abdomen:Soft, bowel sounds present, nontender, nondistended. No hepatosplenomegaly or masses appreciated. Extremities: No clubbing, cyanosis, or edema. Skin: Dry flaky skin throughout body. Seborrheic keratosis on face. Normal temperature and texture; no rash, ulcers, or subcutaneous nodules appreciated. Neurological: Cranial nerves grossly intact. Generalized weakness with decondtioning. Right foot drop. Psychiatric: Labile mood and easily over stimulated and flustered but very plea everardo overall. Alert and oriented to person only. Objective Labs Result Diagrams: 06/06/19 05:00 06/06/19 05:00 Labs: Laboratory Results - last 24 hr 06/04/19 06/04/19 06/04/19 12:55 18:45 23:45 WBC RBC Hgb Hct MCV MCH MCHC RDW Plt Count Neut % (Auto) Lymph % (Auto) Bullock % (Auto) Eos % (Auto) Baso % (Auto) Lymph # (Auto) Bullock # (Auto) Baso # (Auto) Seg Neutrophils % Band Neutrophils % Lymphocytes % (Manual) Monocytes % (Manual) Nucleated RBCs RBC Morphology Anisocytosis Sodium 139 Potassium 4.1 D Chloride 109 H Carbon Dioxide 24 BUN 27 H Creatinine 0.80 Estimated GFR > 60.0 BUN/Creatinine Ratio 33.8 H Glucose 225 H Hemoglobin A1c Calcium 7.2 L Magnesium Troponin I TSH 2.11 Urine Color Urine Appearance Urine pH Ur Specific [place] Urine Protein Urine Glucose (UA) Urine Ketones Urine Occult Blood Urine Nitrate Urine Bilirubin Urine Urobilinogen Ur Leukocyte Esterase Urine RBC Urine WBC Urine Bacteria Ur Culture Indicated? Micro UA Comment Nasal Screen MRSA (PCR) Negative for mrsa 06/04/19 06/05/19 06/05/19 23:45 04:25 04:30 WBC 10.0 RBC 3.01 L Hgb 9.8 L Hct 28.6 L MCV 95.0 MCH 32.8 MCHC 34.5 RDW 17.9 H Plt Count 176 Neut % (Auto) Not Reportable Lymph % (Auto) Not Reportable Bullock % (Auto) Not Reportable Eos % (Auto) Not Reportable Baso % (Auto) Not Reportable Lymph # (Auto) Not Reportable Bullock # (Auto) Not Reportable Baso # (Auto) Not Reportable Seg Neutrophils % 79.0 H Band Neutrophils % 6.0 Lymphocytes % (Manual) 12.0 L Monocytes % (Manual) 3.0 Nucleated RBCs 1 H RBC Morphology See below Anisocytosis 2+ H Sodium Potassium Chloride Carbon Dioxide BUN Creatinine Estimated GFR BUN/Creatinine Ratio Glucose Hemoglobin A1c Calcium Magnesium 1.9 Troponin I 0.079 H TSH Urine Color Yellow Urine Appearance Clear Urine pH 6.5 Ur Specific [place] 1.010 Urine Protein Negative Urine Glucose (UA) Trace H Urine Ketones Negative Urine Occult Blood Negative Urine Nitrate Negative Urine Bilirubin Negative Urine Urobilinogen 0.2 Ur Leukocyte Esterase Negative Urine RBC None seen Urine WBC None seen Urine Bacteria None seen Ur Culture Indicated? Cult not indicated Micro UA Comment Microscopic normal Nasal Screen MRSA (PCR) 06/05/19 06/05/19 06/05/19 04:30 04:30 04:30 WBC RBC Hgb Hct MCV MCH MCHC RDW Plt Count Neut % (Auto) Lymph % (Auto) Bullock % (Auto) Eos % (Auto) Baso % (Auto) Lymph # (Auto) [place] # (Auto) Baso # (Auto) Seg Neutrophils % Band Neutrophils % Lymphocytes % (Manual) Monocytes % (Manual) Nucleated RBCs RBC Morphology Anisocytosis Sodium 137 Potassium 3.2 L Chloride 111 H Carbon Dioxide 25 BUN 26 H Creatinine 0.70 Estimated GFR > 60.0 BUN/Creatinine Ratio 37.1 H Glucose 156 H Hemoglobin A1c 8.2 H Calcium 7.1 L Magnesium 1.9 Troponin I TSH Urine Color Urine Appearance Urine pH Ur Specific [place] Urine Protein Urine Glucose (UA) Urine Ketones Urine Occult Blood Urine Nitrate Urine Bilirubin Urine Urobilinogen Ur Leukocyte Esterase Urine RBC Urine WBC Urine Bacteria Ur Culture Indicated? Micro UA Comment Nasal Screen MRSA (PCR) 06/05/19 13:31 WBC RBC Hgb Hct MCV MCH MCHC RDW Plt Count Neut % (Auto) Lymph % (Auto) Bull[place] % (Auto) Eos % (Auto) Baso % (Auto) Lymph # (Auto) [place] # (Auto) Baso # (Auto) Seg Neutrophils % Band Neutrophils % Lymphocytes % (Manual) Monocytes % (Manual) Nucleated RBCs RBC Morphology Anisocytosis Sodium 138 Potassium 4.3 Chloride 109 H Carbon Dioxide 23 BUN 27 H Creatinine 0.60 L Estimated GFR > 60.0 BUN/Creatinine Ratio 45.0 H Glucose 199 H Hemoglobin A1c Calcium 7.9 L Magnesium Troponin I TSH Urine Color Urine Appearance Urine pH Ur Specific [place] Urine Protein Urine Glucose (UA) Urine Ketones Urine Occult Blood Urine Nitrate Urine Bilirubin Urine Urobilinogen Ur Leukocyte Esterase Urine RBC Urine WBC Urine Bacteria Ur Culture Indicated? 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 1. Paroxysmal atrial fibrillation with RVR, acute, present on admission. Acute RVR resolved. -Patient presented with shortness of breath secondary to rapid onset atrial fibrillation with RVR. -Patient was on metoprolol succinate 50 mg daily for rate control. 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 Magnesium level was normal at 2.1. -Received metoprolol 5 mg IV in ED with transient conversion but then subsequently return to atrial fibrillation with RVR. Received potassium chloride 40 mEq IV x1 and diltiazem 10 mg IV x1 followed by diltiazem gtt in ED. -Continue to monitor and replete potassium as needed. He has required significant amount of potassium repletion with 140 mEq thus far with now potassium 4.3. Goal K+ > 4.0. Likely to start oral potassium supplementation prior to discharge. -Received 1 L normal saline bolus in ED. Continued IV fluid hydration with normal saline at 75 mL/hr. -Diltiazem gtt was titrated off and he was restarted on metoprolol tartrate 12.5 mg twice daily with good rate control. Patient is mildly hypotensive and if persistent hemodynamic instability and/or poor rate control may consider switching to amiodarone. 2. Acute elevated troponin, secondary to demand ischemia, present on admission. Resolved. -Demand ischemic due to atrial fibrillation with RVR and hypotension. -Patient denies CP or ACS symtoms. -EKG demonstrated atrial fibrillation without ischemic changes. -Initial troponin elevated at 0.112. Repeat troponin 0.078 and trending down. No need to further trend. 3. Acute hypokalemia, present on admission. Resolved. -The patient is presently on furosemide 20 mg twice daily and appears clinically dry. Trace bilateral lower extremity edema, no history of CHF, lungs clear to auscultation, chest x-ray without pulmonary edema and no cardiomegaly. -Hyperglycemia is likely contributing to diuresis and potassium loss and continue to optimize glycemic control. -Held furosemide. -Continue to monitor and replete potassium as needed. He has required significant amount of potassium repletion with 140 mEq thus far with now potassium 4.3. Goal K+ > 4.0. 4. Diabetes mellitus type II, chronic, present on admission. Stable. -Hemoglobin A1C 8.2 % indicative of DM. -The patient receives dexamethasone 4 mg PO 3 times daily for vasogenic/cerebral edema secondary to metastatic brain tumor. -Initial glucose on admission is 302 without previous history of DM prior to glucocorticoid therapy. -Continue [facility] blood glucose checks and low-dose correctional scale insulin. If patient continues to have consistently elevated and highly elevated glucose will start basal insulin. -Continue heart healthy/carbohydrate consistent diet. 5. 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 Stable. -Followed by ID at [facility], Dr. Monsalve. Requested records from [facility]. -Continue cefazolin 2 g IV every 8 hours. 6. Malignant melanoma, chronic, present on admission. Presumed stable. -Patient with metastatic brain lesion currently on dexamethasone therapy. -Status post gamma knife procedure, subsequent course of immunotherapy interrupted due to arm infection as above. -Skin biopsies of right arm with retained suture and wound healing cleanly without signs of infection. 7. 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 Active. -Patient with a healing skin tear on right nondenominational without active bleeding and multiple ecchymoses due to recent fall. -Patient with right foot drop likely due to SPOUT LINER HELPER disease. Patient has an AFO brace (ankle foot orthosis) that has been constructed but not yet picked up. -Continue physical and occupational therapies evaluation and treatment. 8. Pressure wounds on buttocks and heels, present on admission. Stable. -Continue to turn and reposition patient every 2 hours. Float heels on pillows. -Continue barrier cream to wounds on buttocks and heel. -Continue to get patient out of bed to chair for meals. 9. Constipation, chronic, present on admission. Stable. -Continue bowel regimen with colace 100 mg twice daily, MiraLax 17 g daily as needed, and Dulcolax suppository 10 mg daily as needed. Patient has had 3 normal soft formed stool since admission. 10. Hypothyroidism, chronic, present on admission. Stable. -TSH normal at 2.11. -Continue current therapy of levothyroxine 50 mcg daily. VTE prophylaxis: Bilateral SCDs, Eliquis Code status: Full Code Disposition: Likely to discharge to [facility] possibly tomorrow if potassium is stable and paroxysmal atrial fibrillation is controlled. Quality VTE Deep Vein Thrombosis/Pulmonary Embolism Present on Admission: Yes
[2019-06-05] MEDS: SODIUM CHLORIDE 0.9% 250 ML 1000 ML IV (20:20)
[2019-06-05 20:33] LABS: BUN Creatinine Ratio 38.3 (6-22); Blood Urea Nitrogen 23 mg/dL (9-20); Calcium 7.6 mg/dL (8.4-10.2); Carbon Dioxide 23 mmol/L (22-32); Chloride 107 mmol/L (98-107); Estimated Glomerular Filt Rate > 60.0 mL/min (>60); Glucose 217 mg/dL (80-110); HEMOLYSIS 25 (0-50); Magnesium 1.9 mg/dL (1.6-2.3); Potassium 4.3 mmol/L (3.4-5.1); Sodium 135 mmol/L (137-145)
--- NOTE | 2019-06-05 20:35 | PC.NURSE ---
Addendum entered by Lisa Nance R.N. 06/05/19 21:20: Patient converted back to Afib RVR with a rate up to the 140's. Blood pressure remains hypotensive. Nurse practitioner Dameon updated. Orders received for NS bolus and to get an EKG if patient converts back to sinus. Patient converted back to sinus zack with a heart rate in the 50's. NS bolus running per order. EKG obtained and Nurse practitioner updated. See new orders for amiodarone. Patient remains asymptomatic throughout. Original Note: At 1943 patient converted to Afib RVR with a rate in the 130-130's. Dr. Gutiérrez notified. Blood pressure 97/57. Has been Sinus Bradycardia this shift. Order received to give metoprolol dose early. Patient asymptomatic. Metoprolol given per order by skilled nursing professional. Patient converted back to Sinus Bradycardia at 2018. Remains asymptomatic. BP noted to be 81/55, Nurse Practitioner Dameon updated. Labs pending.
[2019-06-05] MEDS: INSULIN GLARGINE 100 UNIT/ML 3ML PEN 8 UNIT SUBCUT (20:45)
[2019-06-05] MEDS: SODIUM CHLORIDE 0.9% 500 ML IV (21:09)
[2019-06-05] MEDS: MAGNESIUM OXIDE 400 MG TABLET PO (21:09)
[2019-06-05 21:28] LABS: Troponin I 0.048 ng/mL (0.01-0.034)
[2019-06-05] MEDS: AMIODARONE 200 MG TABLET PO (21:35)
[2019-06-05] MEDS: SODIUM CHLORIDE 0.45% 1,000 ML 125 ML IV (22:21)
--- NOTE | 2019-06-05 22:32 | PM.EVENT ---
Event Note Date Patient Seen: 06/05/19 Time Patient Seen: 21:30 Event Note: Mr. Davila continues to have episodic atrial fibrillation and persistent borderline blood pressures following episode occurring approximately 1930 the patient's electrolytes were again checked due to persistently low potassium levels. Potassium is found to be stable at 4.3 and magnesium 1.9. Patient spontaneously converted back to sinus rhythm then back into atrial fibrillation again with rate into the 130s again with associated hypotension requiring additional fluid bolus to maintain pressure. When in sinus rhythm the patient's rate is in the mid 50s to low 60s. We have attempted maintain his rhythm stability with reduced dose of his home regimen of metoprolol without success. Echocardiogram completed today found an EF of 50-55% with mild concentric LVH, mildly dilated right ventricle and mild aortic regurgitation. Call placed to cardiology for consult who agreed with transitioning the patient to amiodarone loading dose of 200 mg 3 times daily. Cardiac rhythm instability -patient continually relapses into atrial fibrillation despite metoprolol ordered at reduced dose due to persistent bradycardia. -will recheck troponin, obtain a 12 lead EKG when he returns to sinus mechanism. -amiodarone 200 mg PO 3 times daily, discontinue metoprolol. -will recheck electrolytes with morning labs. Steroid induced hyperglycemia -patient with persistent elevated glucose. -will start Lantus 8 units subcutaneously at bedtime.
[2019-06-06] VITALS (11 sets, daily range): BP systolic 93–140; BP diastolic 46–107; PULSE 51–131; RESP 10–19; TEMP 36.2–37.2; O2SAT 94–99
[2019-06-06 05:10] LABS: Hematocrit 26.6 % (41-53); Hemoglobin 8.9 g/dL (13.5-17.5); Mean Corpuscular HGB Conc 33.7 % (30-36); Mean Corpuscular Hemoglobin 32.3 PG (26-34); Mean Corpuscular Volume 95.8 fL (80-100); Platelet Count 171 X10^3/uL (150-400); Red Blood Cell Count 2.77 X10^6/uL (4.5-5.9); Red Cell Distribution Width 18.4 % (11.6-14.8); White Blood Cell Count 9.4 X10^3/uL (4.5-11.0)
[2019-06-06 05:11] LABS: Add Manual Diff / Slide Review YES
[2019-06-06 05:14] LABS: Alanine Aminotransferase 12 IU/L (<50); Albumin 2.3 g/dL (3.5-5.0); Alkaline Phosphatase 155 U/L (38-126); Aspartate Aminotransferase 29 IU/L (17-59); Bilirubin Total 0.4 mg/dL (0.2-1.3); Blood Urea Nitrogen 16 mg/dL (9-20); Calcium 7.2 mg/dL (8.4-10.2); Carbon Dioxide 23 mmol/L (22-32); Chloride 108 mmol/L (98-107); Estimated Glomerular Filt Rate > 60.0 mL/min (>60); Globulin 2.4 g/dL (1.7-4.1); Glucose 140 mg/dL (80-110); HEMOLYSIS < 15 (0-50); Magnesium 1.9 mg/dL (1.6-2.3); Potassium 3.7 mmol/L (3.4-5.1); Sodium 134 mmol/L (137-145); Total Protein 4.7 g/dL (6.3-8.2)
[2019-06-06] MEDS: CEFAZOLIN 2 GM/100 ML FROZ.PIGGY IV ×2 (05:58→13:39)
[2019-06-06 06:19] LABS: Nucleated Red Blood Cells 1 #/Diff
[2019-06-06 06:20] LABS: Anisocytosis 2+
[2019-06-06] MEDS: SODIUM CHLORIDE 0.45% 1,000 ML 125 ML IV (06:57)
[2019-06-06] MEDS: APIXABAN 5 MG TABLET PO (08:21)
[2019-06-06] MEDS: TAMSULOSIN 0.4 MG CAPSULE PO (08:21)
[2019-06-06] MEDS: KETOROLAC 0.5% OPHTH DROPS 5 ML 1 DROPS EYE-RIGHT (08:21)
[2019-06-06] MEDS: DOCUSATE 100 MG CAPSULE PO (08:22)
[2019-06-06] MEDS: dexAMETHasone 4 MG TABLET PO ×2 (08:22→12:11)
[2019-06-06] MEDS: AMIODARONE 200 MG TABLET PO (08:22)
[2019-06-06] MEDS: INSULIN ASPART 100 UNIT/ML INSULN PEN SUBCUT ×2 (08:23→12:08)
[2019-06-06] MEDS: LEVOTHYROXINE 50 MCG TABLET PO (08:24)
--- NOTE | 2019-06-06 08:50 | DIET.PN ---
Dietary Progress Note RD f/u to check POs which are consistently >75%, will hold off on ONS for now and recheck Tuesday if pt still here. Nursing is welcome to give pt ONS if requested. Pt BG nearly at goal of <200 to aid wound healing despite chronic hyperglycemia r/t steroid use. Pt A1c came back elevated at 8.2 reflective of this. Pt currently receiving Dewey bid for wound healing providing added 14g PRO. HT: 175.2cm WT: 75.5 kg BMI: 24.6 Labs: BG 140-217 H, A1c 8.2 H MNA: 10 at risk for malnutrition Ezequiel: [address] Nutrition Diagnosis: increased nutrient needs (PRO) r/t unhealing wounds on buttocks and heels aeb chronic steroid use causing hyperglycemia combined c limited mobility and mild dementia, Ezequiel score [address] Interventions: 1. PRO c each meal 2. Dewey bid to support wound healing 3. tight BG control keeping <200 to support collagen formation Diet Order: HH/CCD EER: 2,000 kcal, 90g PRO (1.2g/kg wounds), 2.3 L fluids Monitoring/Evaluations: Dewey acceptance, POs, consider ensure ONS if POs <75%
[2019-06-06] MEDS: SODIUM CHLORIDE 0.9% 1,000 ML 1000 ML IV (09:15)
--- NOTE | 2019-06-06 10:24 | CM.DPC ---
DCP Cont: Have discharge orders on patient, Dr. Gutiérrez will be consulting with cardiology today. Spoke to Yolis at [facility], confirmed that patient does not need a PASSR. They can accept him today as soon as he is ready. He can go via wheel-chair. P: Will await all orders and discharge summary, as well as signed med list, and will contact Yolis at [facility] when he is ready for discharge. Tania Morris RN/Harnessmaker
[2019-06-06] MEDS: POTASSIUM CHLORIDE 20 MEQ TAB PO (11:25)
--- NOTE | 2019-06-06 11:35 | PM.DS.1 ---
History of Present Illness History of Present Illness Date Patient Seen: 06/04/19 Chief complaint: SOB, hypotension Narrative: Written by Vivek EASON: Mr. 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 The patient currently resides at [facility] for rehabilitation. The patient is a difficult historian and his is at bedside to facilitate obtaining medical history. He states he developed prep heartbeat with a shortness of breath this afternoon. Has a history of atrial fibrillation and is on anticoagulation with Eliquis related to history of pulmonary embolism. He reports no complaints of chest pain, nausea or vomiting. The patient's clinical picture is complicated by ongoing steroid therapy for metastatic melanoma with metastases to the brain and associated hyperglycemia. He has chronic septic olecranon bursitis preventing continuation of his prior immunotherapy. He has 3 wounds to the right upper extremity reportedly from surgical biopsy last Tuesday with a stitch in place without redness or inflammation. The patient reports no complaints of fevers or chills and denies headaches or visual changes. He has no nasal congestion or sore throat. He has no chest pain but reports shortness of breath with rapid heart rate. He denies cough or wheezing. He describes baseline shortness of breath but attributes it to being inactive and has been on bed rest [facility]. Denies abdominal pain but reports constipation having only 1 small bowel movement in the last week. He denies urinary symptoms and endorses nocturia 4 times nightly. Patient has right footdrop and has had frequent falls. He has a walker and cane at home and has had an AFO constructed which he is not yet received. Upon arrival in the ER the patient is afebrile with temperature 97.3? with heart rate of 153, blood pressure of 94/52, respirations of 25 saturating 100% and unknown if on supplemental oxygen. A chest x-ray was obtained which finds no acute cardiopulmonary findings and notes implanted port right upper chest. On laboratory analysis he has white count of 11.3, hemoglobin 10.8, hematocrit of 31.6 with platelets of 198. He has increased neutrophils at 81%. His PT is 21.7 with an INR of 1.9 and a PTT of 27. On chemistry he is notably low on potassium at 2.9 and appears dry with a BUN of 27 with a creatinine of 0.7. His nonfasting glucose is 302. His magnesium is 2.1. His LFTs are within normal limits save for alkaline phosphatase elevated at 195. His troponin is elevated at 0.112. In the ER the patient received aspirin 325 mg, metoprolol 5 mg IV push, with transient resolution of rhythm only to return back in atrial fibrillation and given diltiazem 10 mg IV and started on a drip at 5 mg. He also received normal saline 1 L and was treated with potassium 40 mEq. Patient is admitted to the medicine service with atrial fibrillation, shortness of breath and hypokalemia. Discharge Providers Provider Date of admission: 06/04/19 16:01 Discharge Date: 06/06/19 Consults: 06/04/19 19:31 Consult to Dietitian, Adult Routine Comment: Reason For Exam: assessed at high risk 06/04/19 21:07 Consult to Dietitian, Adult Routine Comment: Reason For Exam: hyperglycemia on continuous steroid therapy 06/04/19 21:08 Consult to Physical Therapy Evaluate & Treat Comment: Hx metastatic brain tumor, foot drop, freq falls. Physician Instructions: Evaluate and Treat 06/04/19 21:09 Consult to Occupational Therapy Evaluate & Treat Comment: Hx metastatic brain tumor, foot drop, freq falls Physician Instructions: Evaluate and treat Discharge provider: Danna Gutiérrez DO Summary Hospital Course Discharge Diagnosis: 1. Paroxysmal atrial fibrillation with RVR, acute, present on admission. Acute RVR resolved. 2. Acute elevated troponin, secondary to demand ischemia, present on admission. Resolved. 3. Acute hypokalemia, present on admission. Resolved. 4. Diabetes mellitus type II, secondary to glucocorticoid therapy, chronic, present on admission. Stable. 5. 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 Stable. 6. Malignant melanoma, chronic, present on admission. Presumed stable. 7. 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 Active. 8. Stage II pressure wounds on buttocks and bilateral heels, present on admission. Stable. 9. Constipation, chronic, present on admission. Stable. 10. Hypothyroidism, chronic, present on admission. Stable. 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 1. Paroxysmal atrial fibrillation with RVR, acute, present on admission. Acute RVR resolved. -Patient presented with shortness of breath secondary to rapid onset atrial fibrillation with RVR. -Patient was on metoprolol succinate 50 mg daily for rate control. 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 Magnesium level was normal at 2.1. -Received metoprolol 5 mg IV in ED with transient conversion but then subsequently return to atrial fibrillation with RVR. Received potassium chloride 40 mEq IV x1 and diltiazem 10 mg IV x1 followed by diltiazem gtt in ED. -Continued to monitor and replete potassium as needed. He has required significant amount of potassium repletion with 140 mEq thus far with now potassium 4.3. Goal K+ > 4.0. Likely to start oral potassium supplementation prior to discharge. -Received 1 L normal saline bolus in ED. Continued IV fluid hydration with normal saline at 75 mL/hr. -Diltiazem gtt was titrated off and he was restarted on metoprolol tartrate 12.5 mg twice daily for which was stopped as it further lowered his BP and he continued to go back into atrial fibrillation with RVR. He was started on oral amiodarone with less ectopy but he continues to transiently go in and out of atrial fibrillation with RVR (which is expected with paroxysmal atrial fibrillation) and he is mildly short of breath but his atrial fibrillation and shortness of breath are non-sustained and he is hemodynamically stable. Discussed with on-call Repeater Chief, Dr. Rose, who recommended continued amiodarone loading over the next several weeks as he is not a rate control candidate due to low normal blood pressure and follow-up with his exchange clerk on 06/08/2019 at his scheduled appointment to discuss further management including consideration of ablation. He has been started on potassium supplementation and his potassium level should be monitored closely for the next several weeks and adjusted accordingly to keep his potassium at 4.0 or above. -If patient has another sustained symptomatic episode of atrial fibrillation with RVR despite amiodarone therapy would recommend transfer to tertiary care center for higher level of care and cardiac intervention. 2. Acute elevated troponin, secondary to demand ischemia, present on admission. Resolved. -Demand ischemia was secondary to atrial fibrillation with RVR and hypotension. -Patient denies CP or ACS symtoms. -EKG demonstrated atrial fibrillation without ischemic changes. -Initial troponin elevated at 0.112. Repeat troponin 0.078 and trending down. No need to further trend. 3. Acute hypokalemia, present on admission. Resolved. -The patient is presently on furosemide 20 mg twice daily and appears clinically dry. Trace bilateral lower extremity edema, no history of CHF, lungs clear to auscultation, chest x-ray without pulmonary edema and no cardiomegaly. -Hyperglycemia is likely contributing to diuresis and potassium loss and continue to optimize glycemic control as below. -Held furosemide and discharged on furosemide 20 mg twice daily to restart as needed. -Continued to monitor and replete potassium as needed. He has required significant amount of potassium repletion with 140 mEq and potassium 3.7. -Discharged on potassium 20 mEQ twice daily with meals. Recommend very close monitoring of potassium level over next 1-2 weeks and adjustment of supplementation as necessary. Goal K+ > 4.0. 4. Diabetes mellitus type II, secondary to glucocorticoid therapy, chronic, present on admission. Stable. -Hemoglobin A1C 8.2 % indicative of DM. -The patient receives dexamethasone 4 mg PO 3 times daily for vasogenic/cerebral edema secondary to metastatic brain tumor for last three months 03/2019. -Initial glucose on admission is 302 without previous history of DM prior to glucocorticoid therapy. -Continued [facility] blood glucose checks and low-dose correctional scale insulin. -Patient continued to have consistently highly elevated glucose and started basal insulin with lantus 8 units at bedtime for better glycemic control and to promote healing of wounds. -Continued heart healthy/carbohydrate consistent diet. 5. 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 Stable. -Followed by ID at [facility], Dr. Monsalve. Requested records from [facility]. -Continued cefazolin 2 g IV every 8 hours to be completed 06/11. 6. Malignant melanoma, chronic, present on admission. Presumed stable. -Patient with metastatic brain lesion currently on dexamethasone therapy. -Status post gamma knife procedure, subsequent course of immunotherapy interrupted due to arm infection as above. -Skin biopsies of right arm with wounds healing cleanly without signs of infection. 7. 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 Active. -Patient with a healing skin tear on right uatsdin without active bleeding and multiple ecchymoses due to recent fall. -Patient with right foot drop likely due to DRUM TESTER disease. Patient has an AFO brace (ankle foot orthosis) that has been constructed but not yet picked up. -Continued physical and occupational therapies evaluation and treatment. 8. Stage II pressure wounds on buttocks and bilateral heels, present on admission. Stable. -Continued to turn and reposition patient every 2 hours. Float heels on pillows. -Continued barrier cream to wounds on sacrum/buttocks and heels. -Continued to get patient out of bed to chair for meals. 9. Constipation, chronic, present on admission. Stable. -Continued bowel regimen and made as needed since patient having frequent BM's especially diarrhea can contribute to hypokalemia as above. Continued with colace 100 mg twice daily as needed, MiraLax 17 g daily as needed, and Dulcolax suppository 10 mg daily as needed. Patient has had 3 normal soft formed stool since admission. 10. Hypothyroidism, chronic, present on admission. Stable. -TSH normal at 2.11. -Continued current therapy of levothyroxine 50 mcg daily. Exam Vital Signs (past 8 hours): - 06/06/19 04:25 06/06/19 04:58 06/06/19 06:00 Temperature 97.4 F L 98.9 F Pulse Rate 83 51 L 61 Respiratory Rate 17 16 10 L Blood Pressure 107/49 L 97/46 L 99/50 L Pulse Oximetry 96 96 94 06/06/19 07:53 06/06/19 08:00 06/06/19 10:00 Temperature 97.2 F L Pulse Rate 55 L 86 68 Respiratory Rate 17 19 14 Blood Pressure 93/50 L 115/56 L Pulse Oximetry 96 95 Oxygen Delivery Method Room Air Oxygen Flow Rate 0 Narrative Exam Narrative: General: Elderly male lying in bed and in no acute distress, appears chronically ill, alert and oriented to person only, emotionally lable but otherwise appropriately interactive. HEENT: Normocephalic, atraumatic. External ears without defect. Pupils equal, round, and reactive to light. Anicteric sclerae, moist conjunctivae, and no lid lag. Skin tear on right uatsdin healing well. Neck: Poor skin turgor with dry skin and full range of motion. No jugular venous distension. No lymphadenopathy or thyromegaly. Cardiovascular: Regular rate and rhythm without murmurs, rubs, or gallops appreciated. Pulmonary: Clear to auscultation bilaterally without crackles, wheezes, or rhonchi. Normal respiratory effort with no use of accessory muscles. Abdomen: Soft, bowel sounds present, nontender, nondistended. No hepatosplenomegaly or masses appreciated. Extremities: No clubbing, cyanosis, or edema. Right arm with dressing in place C/D/I. Stage II pressure ulcerations on bilateral heels and sacrum healing well and do not appear infected. Skin: Dry flaky skin throughout body. Seborrheic keratosis on face. Normal temperature and texture; no ulcers, or subcutaneous nodules appreciated. Neurological: Cranial nerves grossly intact. Generalized weakness with decondtioning. Right foot drop. Psychiatric: Labile mood and easily over stimulated and flustered but very pleasant overall. Alert and oriented to person only. Objective Labs Result Diagrams: 06/06/19 05:00 06/06/19 05:00 Labs: Laboratory Results - last 24 hr 06/05/19 06/05/19 06/05/19 04:30 13:31 20:05 WBC RBC Hgb Hct MCV MCH MCHC RDW Plt Count Neut % (Auto) Lymph % (Auto) [place] % (Auto) Eos % (Auto) Baso % (Auto) Lymph # (Auto) [place] # (Auto) Baso # (Auto) Seg Neutrophils % Band Neutrophils % Lymphocytes % (Manual) Monocytes % (Manual) Myelocytes % Nucleated RBCs RBC Morphology Anisocytosis Sodium 138 135 L Potassium 4.3 4.3 Chloride 109 H 107 Carbon Dioxide 23 23 BUN 27 H 23 H Creatinine 0.60 L 0.60 L Estimated GFR > 60.0 > 60.0 BUN/Creatinine Ratio 45.0 H 38.3 H Glucose 199 H 217 H Hemoglobin A1c 8.2 H Calcium 7.9 L 7.6 L Magnesium Total Bilirubin AST ALT Alkaline Phosphatase Troponin I Total Protein Albumin Globulin Albumin/Globulin Ratio 06/05/19 06/05/19 06/06/19 20:05 20:05 05:00 WBC 9.4 RBC 2.77 L Hgb 8.9 L Hct 26.6 L MCV 95.8 MCH 32.3 MCHC 33.7 RDW 18.4 H Plt Count 171 Neut % (Auto) Not Reportable Lymph % (Auto) Not Reportable [place] % (Auto) Not Reportable Eos % (Auto) Not Reportable Baso % (Auto) Not Reportable Lymph # (Auto) Not Reportable [place] # (Auto) Not Reportable Baso # (Auto) Not Reportable Seg Neutrophils % 72.0 H Band Neutrophils % 4.0 Lymphocytes % (Manual) 16.0 L Monocytes % (Manual) 7.0 Myelocytes % 1.0 H Nucleated RBCs 1 H RBC Morphology See below Anisocytosis 2+ H Sodium Potassium Chloride Carbon Dioxide BUN Creatinine Estimated GFR BUN/Creatinine Ratio Glucose Hemoglobin A1c Calcium Magnesium 1.9 Total Bilirubin AST ALT Alkaline Phosphatase Troponin I 0.048 H Total Protein Albumin Globulin Albumin/Globulin Ratio 06/06/19 05:00 WBC RBC Hgb Hct MCV MCH MCHC RDW Plt Count Neut % (Auto) Lymph % (Auto) [place] % (Auto) Eos % (Auto) Baso % (Auto) Lymph # (Auto) [place] # (Auto) Baso # (Auto) Seg Neutrophils % Band Neutrophils % Lymphocytes % (Manual) Monocytes % (Manual) Myelocytes % Nucleated RBCs RBC Morphology Anisocytosis Sodium 134 L Potassium 3.7 Chloride 108 H Carbon Dioxide 23 BUN 16 Creatinine 0.50 L Estimated GFR > 60.0 BUN/Creatinine Ratio 32.0 H Glucose 140 H Hemoglobin A1c Calcium 7.2 L Magnesium 1.9 Total Bilirubin 0.4 AST 29 ALT 12 Alkaline Phosphatase 155 H Troponin I Total Protein 4.7 L Albumin 2.3 L Globulin 2.4 Albumin/Globulin Ratio 1.0 Discharge Plan Discharge Plan Patient Disposition: SNF Transfer to: [facility] Discharge comment: Potassium level tomorrow and close monitoring of potassium for next 1-2 weeks and adjustment of supplementation to keep potassium level at 4.0 or above. Discharge orders & Medications Prescriptions: New amiodarone 200 mg Tablet 400 mg PO BIDWM Qty: 100 RF: 0 bisacodyl 10 mg Suppository 10 mg [place] DAILY PRN (Reason: Constipation) Qty: 10 RF: 0 Novolog Flexpen U-100 Insulin 100 unit/mL (3 mL) Insulin Pen See Rx Instructions .ROUTE .COMPLEX Qty: 15 RF: 0 Lantus Solostar U-100 Insulin 100 unit/mL (3 mL) Insulin Pen 8 unit subcut BEDTIME Qty: 3 RF: 0 potassium chloride [Klor-Con M20] 20 mEq Tablet,Er Particles/Crystals 20 meq PO BIDWM Qty: 30 RF: 0 Continued Novolog Flexpen U-100 Insulin 100 unit/mL (3 mL) Insulin Pen 3 - 9 unit SUBCUT ACHS RF: 0 prednisolone acetate (PF) 1 % Drops,Suspension 1 drp EYE-RIGHT BID PRN (Reason: Dry Eyes) RF: 0 ketorolac [Acular] 0.5 % Drops 1 drp EYE-RIGHT QID RF: 0 tamsulosin 0.4 mg Capsule 0.4 mg PO DAILY RF: 0 levothyroxine 50 mcg Tablet 50 mcg PO DAILY RF: 0 docusate sodium [Colace] 100 mg Capsule 100 mg PO BID RF: 0 calcium carbonate 500 mg calcium (1,250 mg) Tablet,Chewable 1,000 mg PO BID PRN (Reason: Heartburn) RF: 0 Acidophilus Tablet,Chewable 2 tab PO DAILY RF: 0 apixaban 5 mg Tablet 5 mg PO BID RF: 0 dexamethasone 4 mg Tablet 4 mg PO AC RF: 0 cefazolin in 0.9% sod chloride 2 gram/100 mL Solution 2 g IV Q8H RF: 0 polyethylene glycol 3350 17 gram Powder In Packet 17 g PO DAILY PRN (Reason: Constipation) RF: 0 Changed furosemide 20 mg Tablet 20 mg PO BID PRN (Reason: shortness of breath or peripheral edema) Qty: 0 RF: 0 Discontinued metoprolol succinate 50 mg Tablet Extended Release 24 Hr 50 mg PO DAILY RF: 0 Discharge Health Status Health Concerns: Vanessa Davila is an 83-year-old male with a past medical history significant for 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 The patient continues to transiently go in and out of atrial fibrillation with RVR with mild shortness of breath but this is nonsustained and he is hemodynamically stable. Discussed with Cardiology who recommended continue amiodarone loading over the next several weeks as he is not a rate control candidate due to low normal blood pressure and for him to follow-up with his exchange clerk on 06/08/2019 at his scheduled appointment to discuss further management including consideration of ablation. He should not be brought back to the hospital unless his atrial fibrillation with RVR is sustaining for 30 minutes to an hour and is severely symptomatic or he is hemodynamically unstable. He has been started on potassium supplementation and his potassium level should be monitored closely for the next several weeks and adjusted accordingly to keep his potassium at 4.0 or above. Diet/Activity/Treatments Diet: Carb-consistent/Diabetic, Low-fat, Low-sodium and Low-cholesterol Activity: Activity as tolerated with forward wheeled walker and physical and occupational therapy. [facility] Rehab type: Physical therapy and Occupational therapy Discharges patient from system. Discharge Date/Time: 06/06/19 15:05 Quality VTE Deep Vein Thrombosis/Pulmonary Embolism Present on Admission: Yes
[2019-06-06] MEDS: AMIODARONE 200 MG TABLET 400 MG PO (11:59)
== END 2019-06-06 15:05 | DRG 309 ==
LOC: ED 11:50 → AC 16:02 → ICU 16:20
PROVIDERS: Nurse Practitioner Adult Health; Admitting Provider Internal Medicine; Emergency Provider Emergency Medicine; Visit Provider Internal Medicine
DX: I48.0 Paroxysmal atrial fibrillation (principal); I24.8 Other forms of acute ischemic heart disease; C79.31 Secondary malignant neoplasm of brain; L89.302 Pressure ulcer of unspecified buttock, stage 2; C43.9 Malignant melanoma of skin, unspecified; L89.622 Pressure ulcer of left heel, stage 2; L89.612 Pressure ulcer of right heel, stage 2; R29.6 Repeated falls; M71.129 Other infective bursitis, unspecified elbow; E87.6 Hypokalemia; K59.00 Constipation, unspecified; E11.9 Type 2 diabetes mellitus without complications; E03.9 Hypothyroidism, unspecified; Z86.711 Personal history of pulmonary embolism; Z79.01 Long term (current) use of anticoagulants; Z87.891 Personal history of nicotine dependence
CPT/HCPCS: 36415; 36591; 71045; 80048; 80053; 81001; 82550; 82962; 83036; 83735; 84443; 84484; 85025; 85610; 85730; 87797; 93005; 93306; 94760; 96361; 96365; 96366; 96375; 97162; 97530; 99285; 99291; J0690; J3480; J7050

== ENCOUNTER 2019-06-19 14:34 | Emergency (ER) | payer MEDICARE, SELFPAY ==
[2019-06-04 19:18] VITALS: BMI 24.6
[2019-06-19] VITALS (12 sets, daily range): BP systolic 100–143; BP diastolic 37–76; PULSE 64–70; RESP 15–30; TEMP 36.7; O2SAT 95–100
--- NOTE | 2019-06-19 14:39 | ED_ITS ---
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 It got significantly worse he threw up 1 time he has some mild nausea. He denies any chest pain or shortness of breath. Patient does seem quite uncomfortable. MD complaint: abdominal pain Related Data Home Medications Medication Instructions Recorded Confirmed apixaban 5 mg PO BID 06/04/19 06/19/19 calcium carbonate 500 - 1,000 mg PO Q6H PRN 06/04/19 06/19/19 dexamethasone 4 mg PO BID 06/04/19 06/19/19 docusate sodium [Colace] 100 mg PO BID 06/04/19 06/19/19 levothyroxine 50 mcg PO DAILY 06/04/19 06/19/19 polyethylene glycol 3350 17 g PO DAILY PRN 06/04/19 06/19/19 tamsulosin 0.4 mg PO DAILY 06/04/19 06/19/19 Lactobacillus acidophilus 2 tab PO QAM 06/19/19 06/19/19 acetaminophen 650 mg PO Q4H PRN 06/19/19 06/19/19 alum-mag hydroxide-simeth 30 ml PO PRN PRN 06/19/19 06/19/19 amiodarone 400 mg PO DAILY 06/19/19 06/19/19 ascorbic acid (vitamin C) [Vitamin 2 g PO DAILY 06/19/19 06/19/19 C] aspirin 81 mg PO DAILY 06/19/19 06/19/19 coenzyme Q10 [CoQ-10] 100 mg PO QAM 06/19/19 06/19/19 insulin lispro See Rx Instructions .ROUTE .COMPLEX 06/19/19 06/19/19 ipratropium-albuterol 3 ml INHALATION Q4H PRN 06/19/19 06/19/19 lidocaine 1 patch TOPICAL DAILY PRN 06/19/19 06/19/19 lutein 20 mg PO DAILY 06/19/19 06/19/19 melatonin 0.5 mg PO BEDTIME PRN 06/19/19 06/19/19 multivitamin 1 tab PO DAILY 06/19/19 06/19/19 peg 250-zezllhtfbdec-kcmxxpch 1 drp OPHTHALMIC (EYE) Q1H PRN 06/19/19 06/19/19 [Artificial Tears(rg-gnew-bwxb)] potassium chloride 10 meq PO DAILY 06/19/19 06/19/19 sennosides [senna] 17.2 mg PO BID PRN 06/19/19 06/19/19 vitamin E 400 unit PO DAILY 06/19/19 06/19/19 Previous Rx's Medication Instructions Recorded insulin glargine [Lantus Solostar 8 unit SUBCUT BEDTIME #3 ml 06/06/19 U-100 Insulin] Allergies Allergy/AdvReac Type Severity Reaction Status Date / Time No Known Drug Allergies Allergy Verified 06/19/19 15:02 Review of Systems Review of Systems ROS Unobtainable: All systems reviewed & are unremarkable except as noted in HPI and below Constitutional Constitutional: Denies chills, Denies fever(s), Denies lethargy and Denies weakness Eyes Eyes: Denies change in vision, Denies eye discharge, Denies irritation and Denies loss of vision ENT Ears, Nose, Mouth, and Throat: Denies change in voice, Denies neck pain and Denies sore throat Cardiovascular Cardiovascular: Reports as per HPI, Denies chest pain, Denies dyspnea, Denies dyspnea on exertion and Denies orthopnea Respiratory Respiratory: Denies cough, Denies dyspnea, Denies dyspnea on exertion and Denies wheezing Gastrointestinal Gastrointestinal: Reports as per HPI Genitourinary Genitourinary: Denies hematuria, Denies flank pain, Denies urinary incontinence and Denies urinary urgency Musculoskeletal Musculoskeletal: Denies neck pain Integumentary/Breasts Skin/Breast: Denies pruritus, Denies erythema, Denies rash and Denies wounds Neurologic Neurologic: Denies loss of vision and Denies weakness Allergic/Immunologic Allergic/Immunologic: Denies wheezing Patient History Medical History Atrial fibrillation (Acute) Cataract (Acute) Drop foot gait (Acute) Headache (Acute) Hypothyroidism (Acute) Malignant melanoma (Acute) Melanoma metastatic to brain (Acute) Pulmonary embolism (Acute) Septic olecranon bursitis of right elbow (Acute) Status post gamma knife treatment (Acute) Surgical History History of local excision of skin lesion (Acute) History of vascular access device (Acute) Family History Father Alcohol abuse Mother Obesity Brother No known problems Sister No known problems Social History household members: spouse Smoking Status: Former smoker alcohol intake: current alcohol intake frequency: a few times a month Substance Use Type: does not use Exam Initial Vital Signs Initial Vital Signs: Vital Signs Temperature 98.1 F 06/19/19 14:24 Pulse Rate 67 06/19/19 14:24 Respiratory Rate 30 H 06/19/19 14:24 Blood Pressure 143/37 H 06/19/19 14:24 Pulse Oximetry 95 06/19/19 14:24 GENERAL: Alert elderly male appears in pain and in no acute distress. HEENT: Head atraumatic,EOMI, pupils reactive, face symmetric, moist mucous membranes CARDIOVASCULAR: Regular rate and rhythm without murmurs, rubs or gallops. RESPIRATORY: Breath sounds equal bilaterally, no wheezes rales or rhonchi. ABDOMEN: Soft, tender right upper quadrant no guarding no rebound, he actually is quite tender all over with minimal pressure palpation but mostly in the right upper quadrant EXTREMITIES: Normal range of motion, no clubbing or edema. Neurovascularly intact NEUROLOGICAL: Alert and oriented x4.Normal gait and speech. Cranial nerves II through XII grossly intact. SKIN: Warm, dry, no laceration, no petechiae, no rashes or lesions. Course Orders Ordered: ED Orders 06/19/19 14:38 US abdomen limited Stat XR chest 1V Stat EKG-12 Lead Stat 06/19/19 14:50 B Type Natriuretic Peptide Stat Complete Blood Count AUTO DIFF Stat Comprehensive Metabolic Panel Stat Lipase Stat Partial Thromboplastin Time Stat Prothrombin Time INR Stat Troponin & CK Cardiac Panel Stat 06/19/19 14:51 Blood Culture Stat Lactate (Lactic Acid) Stat 06/19/19 16:09 CT chest abd pel w con Stat 06/19/19 18:50 Urinalysis and Microscopic Stat Sodium Chloride (Normal Saline 0.9%) 1,000 mls @ 150 mls/hr IV CONT ARSALAN Last Infusion: 06/19/19 18:26 Dose: 500 mls/hr Documented by: Admin: 06/19/19 15:05 Dose: 150 mls/hr Documented by: LOLYD Sodium Chloride (Normal Saline 0.9%) 1,000 mls @ 250 mls/hr IV CONT ARSALAN Discontinued Medications Hydromorphone HCl (Dilaudid) 0.5 mg IV NOW ONE Stop: 06/19/19 16:10 Last Admin: 06/19/19 16:16 Dose: 0.5 mg Documented by: LLOYD Hydromorphone HCl (Dilaudid) 0.5 mg IV NOW ONE Stop: 06/19/19 17:39 Last Admin: 06/19/19 17:43 Dose: 0.5 mg Documented by: LLOYD Piperacillin/Tazobactam/Dextrose (Zosyn) 3.375 gm in 50 mls @ 100 mls/hr IV NOW ONE Stop: 06/19/19 18:51 Last Admin: 06/19/19 18:41 Dose: 100 mls/hr Documented by: LLOYD Lidocaine HCl (Urojet) 5 ml TOP NOW ONE Stop: 06/19/19 18:40 Last Admin: 06/19/19 18:41 Dose: 5 ml Documented by: LLOYD Morphine Sulfate (Morphine) 2 mg IV NOW ONE Stop: 06/19/19 14:39 Last Admin: 06/19/19 15:05 Dose: 2 mg Documented by: LLOYD Ondansetron HCl (Zofran) 4 mg IV NOW ONE Stop: 06/19/19 14:39 Last Admin: 06/19/19 15:05 Dose: 4 mg Documented by: LLOYD Reevaluation(s) Additional Reevaluation(s): Dr. Caruso, due to patient's anticoagulation and lack of platelets at this hospital requests that patient be transferred to higher level of care Consultations Time: 17:59 Consultation #2: Dr. Nuñez surgery at [place] updated on patient's symptoms and test results agrees with transfer Time: 18:40 Vital Signs Vital signs: Vital Signs - 8 hr 06/19/19 14:24 06/19/19 14:56 06/19/19 15:00 Temperature 98.1 F Pulse Rate 67 67 67 Respiratory Rate 30 H 25 H 23 Blood Pressure 143/37 H Blood Pressure [Left Arm] 129/56 L 100/76 Pulse Oximetry 95 99 99 06/19/19 15:08 06/19/19 15:09 06/19/19 16:54 Temperature Pulse Rate 66 66 70 Respiratory Rate 27 H 20 18 Blood Pressure Blood Pressure [Left Arm] 100/75 136/50 L 124/43 L Pulse Oximetry 99 100 98 06/19/19 17:15 06/19/19 17:45 06/19/19 18:00 Temperature Pulse Rate 68 68 66 Respiratory Rate 15 15 16 Blood Pressure Blood Pressure [Left Arm] 133/40 L 133/40 L 130/58 L Pulse Oximetry 98 98 06/19/19 18:30 Temperature Pulse Rate 65 Respiratory Rate 15 Blood Pressure Blood Pressure [Left Arm] 134/57 L Pulse Oximetry 98 MDM - Abdominal Pain Lab Data Attestation: I reviewed the patient's lab results. Result diagrams: 06/19/19 14:50 06/19/19 14:50 Labs: Lab Results 06/19/19 06/19/19 06/19/19 Range/Units 14:50 14:50 14:50 WBC 7.9 (4.5-11.0) X10^3/uL RBC 3.02 L (4.5-5.9) X10^6/uL Hgb 10.0 L (13.5-17.5) g/dL Hct 29.2 L (41-53) % MCV 96.9 (80-100) fL MCH 33.2 (26-34) PG MCHC 34.3 (30-36) % RDW 19.1 H (11.6-14.8) % Plt Count 237 (150-400) X10^3/uL Neut % (Auto) Not Reportable Lymph % (Auto) Not Reportable [place] % (Auto) Not Reportable Eos % (Auto) Not Reportable Baso % (Auto) Not Reportable Lymph # (Auto) Not Reportable [place] # (Auto) Not Reportable Baso # (Auto) Not Reportable Total Counted 100 Seg Neutrophils % 83.0 H (38-70) % Band Neutrophils % 9.0 H (3-7) % Lymphocytes % (Manual) 4.0 L (25-45) % Monocytes % (Manual) 1.0 L (2-11) % Metamyelocytes % 2.0 H (-0) % Myelocytes % 1.0 H (-0) % Neutrophils # (Manual) 7268 H (8120-9227) /uL RBC Morphology See below Polychromasia 1+ H Poikilocytosis 1+ H Anisocytosis 2+ H PT 24.7 H (10.1-12.7) SECONDS INR 2.1 H (0.9-1.3) APTT 30 D (26.4-36.2) SECONDS Sodium 134 L (137-145) mmol/L Potassium 3.3 L (3.4-5.1) mmol/L Chloride 107 (98-107) mmol/L Carbon Dioxide 20 L (22-32) mmol/L BUN 32 H (9-20) mg/dL Creatinine 0.90 (0.66-1.25) mg/dL Estimated GFR > 60.0 (>60) mL/min BUN/Creatinine Ratio 35.6 H (6-22) Glucose 239 H (80-110) mg/dL Lactate (0.7-2.1) mmol/L Calcium 8.1 L (8.4-10.2) mg/dL Total Bilirubin 0.7 (0.2-1.3) mg/dL AST 28 (17-59) IU/L ALT 20 (<50) IU/L Alkaline Phosphatase 234 H (38-126) U/L Total Creatine Kinase < 20 L (55-170) U/L CK-MB (CK-2) TNP CK-MB (CK-2) Rel Index TNP Troponin I 0.019 (0.01-0.034) ng/mL B-Natriuretic Peptide 245 H (<100) Total Protein 5.3 L (6.3-8.2) g/dL Albumin 2.7 L (3.5-5.0) g/dL Globulin 2.6 (1.7-4.1) g/dL Albumin/Globulin Ratio 1.0 (1.0-2.8) Lipase 142 (23-300) U/L 06/19/19 Range/Units 14:51 WBC (4.5-11.0) X10^3/uL RBC (4.5-5.9) X10^6/uL Hgb (13.5-17.5) g/dL Hct (41-53) % MCV (80-100) fL MCH (26-34) PG MCHC (30-36) % RDW (11.6-14.8) % Plt Count (150-400) X10^3/uL Neut % (Auto) Lymph % (Auto) [place] % (Auto) Eos % (Auto) Baso % (Auto) Lymph # (Auto) [place] # (Auto) Baso # (Auto) Total Counted Seg Neutrophils % (38-70) % Band Neutrophils % (3-7) % Lymphocytes % (Manual) (25-45) % Monocytes % (Manual) (2-11) % Metamyelocytes % (-0) % Myelocytes % (-0) % Neutrophils # (Manual) (0010-3133) /uL RBC Morphology Polychromasia Poikilocytosis Anisocytosis PT (10.1-12.7) SECONDS INR (0.9-1.3) APTT (26.4-36.2) SECONDS Sodium (137-145) mmol/L Potassium (3.4-5.1) mmol/L Chloride (98-107) mmol/L Carbon Dioxide (22-32) mmol/L BUN (9-20) mg/dL Creatinine (0.66-1.25) mg/dL Estimated GFR (>60) mL/min BUN/Creatinine Ratio (6-22) Glucose (80-110) mg/dL Lactate 4.1 H* (0.7-2.1) mmol/L Calcium (8.4-10.2) mg/dL Total Bilirubin (0.2-1.3) mg/dL AST (17-59) IU/L ALT (<50) IU/L Alkaline Phosphatase (38-126) U/L Total Creatine Kinase (55-170) U/L CK-MB (CK-2) CK-MB (CK-2) Rel Index Troponin I (0.01-0.034) ng/mL B-Natriuretic Peptide (<100) Total Protein (6.3-8.2) g/dL Albumin (3.5-5.0) g/dL Globulin (1.7-4.1) g/dL Albumin/Globulin Ratio (1.0-2.8) Lipase (23-300) U/L Imaging Data Chest x-ray: Radiologist's impression: PROCEDURE: XR CHEST 1V INDICATIONS: chest pain TECHNIQUE: One view of the chest was acquired. COMPARISON: [facility], , XR CHEST 1V, 06/04/2019, 12:06. FINDINGS: Surgical changes and devices: A right-sided Port-A-Cath central line is identified with the tip overlying expected location of the right atrium. Lungs and pleura: Low lung volumes are present. There is no definite pulmonary consolidation. No effusion or pneumothorax is appreciated. Mediastinum: Mediastinal contours appear normal. Heart size is mildly enlarged. There is aortic atherosclerosis. Bones and chest wall: No suspicious bony lesions. Overlying soft tissues appear unremarkable. IMPRESSION: No acute cardiopulmonary process is suspected. Dictated by: Riky Ramos M.D. on 06/19/2019 at 14:01 CT scan - abdomen: Radiologist's impression: PROCEDURE: CT CHEST ABD PEL W CON INDICATIONS: severe chest pain and ruq pain TECHNIQUE: After the administration of intravenous contrast, 5 mm thick sections acquired from the lung apices to the symphysis. 5 mm coronal and sagittal reformats were performed, with additional 7 mm MIP reformats through the lungs. For radiation dose reduction, the following was used: automated exposure control, adjustment of mA and/or kV according to patient size. COMPARISON: None. FINDINGS: Image quality: Diagnostic. CHEST: Lungs and pleura: Groundglass attenuation is identified diffusely throughout the lungs. No focal consolidation is evident with the exception of mild costophrenic angle atelectasis. There is no pneumothorax. Centrilobular emphysematous changes throughout the lungs are also present. There is a trace right-sided pleural effusion. A 4 mm nodule within the right upper lobe near the minor fissure is present (image 29, series 2). A calcified granuloma is evident within the posterior medial left costophr enic angle (image 44, series 2). No lung mass is evident. Mediastinum: Heart size is enlarged. Coronary artery atherosclerosis is present. A right-sided central line catheter is position with the tip located at the atrial caval junction. No pericardial effusion. No mediastinal or hilar adenopathy by size criteria. Thoracic aorta and central pulmonary arteries are normal in size. There is aortic atherosclerosis. Esophagus is normal in caliber. No hiatal hernia. Chest wall and bones: No axillary or supraclavicular adenopathy by size criteria. Thyroid gland demonstrates a small hypodense nodule along the inferior margin of the right thyroid lobe that measures up to 9 mm in diameter and is not adequately characterized on CT. Age appropriate degenerative changes of the imaged cervicothoracic spine are present. No displaced fractures are evident of the thorax. No suspicious osseous lesions are present. ABDOMEN: Solid organs: There is a moderate-sized heterogeneous loculated fluid collection identified along the superior aspect of the body of the pancreas, which is noted to contain air and demonstrates air fluid levels. A small amount of pneumoperi toneum is seen within the right upper quadrant. The main pancreatic duct is noted to be dilated with multiple cystic foci arising from the body and tail of the pancreas that are not well characterized. Otherwise, the pancreas demonstrates enhancement. There is mild edema within the adjacent mesentery. The liver is slightly hypodense when compared to the spleen. There may be layering sludge within the gallbladder. The spleen is unremarkable. The adrenals and kidneys are within normal limits with the exception of possible right renal calculi and a large simple appearing inferior right renal cyst that measures up to approximately 8.4 cm in diameter. Peritoneum and bowel: Again, there is a heterogeneous fluid collection identified above the level of the pancreas that measures 3.5 x 5.6 x 3.4 cm (image 55, series 2). Adjacent areas of free air are seen within this region. This does not definitively track to the level of the stomach or the duodenum. However, at the gastroduodenal junction, there is a small focus of air that appears to extend beyond the lumen of the bowel (image 61, series 2) which mild adjacent mesenteric edema and a trace amount of adjacent fluid. This air tracks cranially into the mesentery (image 61, series 2). The small bowel loops are nondilated. A moderate amount of residual stool is identified within the colon. Small amount of free fluid is seen within the right upper quadrant. Large amount of stool seen throughout the colon. Distal colonic diverticulosis is evident without convincing evidence of acute diverticulitis. Nodes and vessels: No retroperitoneal or mesenteric adenopathy by size criteria. Aortic atherosclerosis is present with an infrarenal abdominal aortic aneurysm measuring up to 3.0 cm in AP dimension just above the level of the inferior mesenteric artery takeoff. This does not extend into the lower aspect of the abdominal aorta. Iliac arteries demonstrate atherosclerosis without aneurysm or occlusion. Bones: No acute fracture or suspicious osseous lesion is present. Moderate to severe degenerative changes of the lumbar spine are noted. PELVIS: Soft tissues: Urinary bladder is slightly distended, but is otherwise unremarkable. There is a questionable calculus at the left vesicoureteral junction within the urinary bladder (image 117, series 2). The prostate is enlarged and measures approximately 3.5 x 4.9 cm and contains coarse calcifications. Small to moderate-sized bilateral fat-containing inguinal hernias are present. There is no free fluid or loculated fluid collection within the pelvis. Bones: No suspicious bony lesions. No acute pelvic fracture is evident. Hinm-ph-cqrxgrbq degenerative changes of the pelvic joints are noted. Atrophy involving the gluteal muscles is noted (left greater than right). IMPRESSION: 1. Heterogeneous loculated fluid collection likely represents a developing abscess related to perforated bowel, given small amounts of adjacent free air. The most likely source would be at the gastroduodenal junction, given a small tract of air extending from this region into the peritoneal cavity. However, the pancreatitis with an associated abscess cannot be completely excluded. Surgical consultation is recommended. 2. Mild pneumoperitoneum and minimal right upper quadrant ascites. 3. No bowel obstruction. There is probably constipation. 4. Small right-sided pleural effusion with associated atelectasis. 5. Multiple small fluid collections along the course of the pancreas probably represent dilatation of the main pancreatic duct and sidebranches. This may be on the basis of chronic pancreatitis. However, acute pancreatitis with multiple small pseudocysts cannot be excluded and clinical correlation is recommended. When the patient's acute symptoms have resolved, contrast enhanced MRI is recommended to evaluate the pancreas for possible neoplasm. Additional findings: -Small right thyroid nodule. A nonemergent thyroid ultrasound would be of value. -Cardiomegaly and coronary/aortic atherosclerosis. -Small infrarenal abdominal aortic aneurysm. -Probable renal calculi versus vascular calcifications. No hydronephrosis. -Simple large right renal cyst. -Probable hepatic steatosis. -Colonic diverticulosis without diverticulitis. -Bilateral fat-containing hernias. -Enlarged prostate gland. Note: Findings were discussed with Dr. Boles at 1725 hours (PST) on 06/19/19. Dictated by: Riky Ramos M.D. on 06/19/2019 at 16:10 US - abdomen: Radiologist's impression: PROCEDURE: US ABDOMEN LIMITED INDICATIONS: RUQ TECHNIQUE: Real-time focused scanning was performed of the abdomen, with image docu mentation. COMPARISON: None. FINDINGS: Suboptimal study secondary to uncooperative patient. The gallbladder was visualized and there is a small amount of adherent sludge along the wall. A discrete stone is not seen. Gallbladder wall thickness was unable to be accurately measured, estimated to be between 3 and 4 mm. Common duct is not seen. Questionable hyperemia of the gallbladder wall. No pericholecystic fluid or sonographic Foster's sign per the technologist. The visible portions of the liver are grossly within normal limits. IMPRESSION: 1. Limited study. 2. Gallbladder sludge without convincing evidence of cholelithiasis or definite signs of acute cholecystitis. Dictated by: Harini Osman M.D. on 06/19/2019 at 16:18 ECG Data Attestation: I personally reviewed and interpreted this ECG as follows: Prior ECG tracings: available for review Interpretation: Sinus rhythm rate 66 p.r. interval 159 QRS [address] elevations depressions or T-wave inversions similar to previous EKG MDM Narrative Medical decision making narrative: Patient continues to have significant right shoulder pain despite morphine. Abdomen is quite tender, he is given Dilaudid. Which has improved his pain significantly. CT does confirm free air with possible abscess. He is also taking Eliquis for his paroxysmal atrial fibrillation he received a dose this morning. Patient does have elevated lactate of 4.1. He is empirically given antibiotics Zosyn and started with IV hydration. He does have a history of CHF echocardiogram this month actually does show EF of 50-55%. He is getting IV fluids at this time. Pain is controlled with Dilaudid. Critical Care Time Critical Care Time Critical Care Time: Yes Total Critical Care Time: 30 Attestation: The high probability of a clinically significant, sudden or life threatening deterioration of the [cardiovascular] system(s) required my full and direct attention, intervention and personal management. The aggregate critical care time was 30 minutes. This time is in addition to time spent performing reported procedures but includes the following: [x] Data Review and interpretation [x] Patient assessment and monitoring of vital signs [x] Documentation [x] Medication orders and management Discharge Plan Departure Patient Disposition: [facility] Clinical Impression: Bowel perforation Prescriptions: No Action multivitamin Tablet 1 tab PO DAILY RF: 0 sennosides [senna] 8.6 mg Tablet 17.2 mg PO BID PRN (Reason: Constipation) RF: 0 ascorbic acid (vitamin C) [Vitamin C] 1,000 mg Tablet 2 g PO DAILY RF: 0 potassium chloride 10 mEq Capsule, Extended Release 10 meq PO DAILY RF: 0 acetaminophen 325 mg Tablet 650 mg PO Q4H PRN (Reason: fever or pain) RF: 0 ipratropium-albuterol 0.5 mg-3 mg(2.5 mg base)/3 mL Solution For Nebulization 3 ml INHALATION Q4H PRN (Reason: Shortness Of Breath) RF: 0 amiodarone 400 mg Tablet 400 mg PO DAILY RF: 0 lidocaine 5 % Adhesive Patch,Medicated 1 patch TOPICAL DAILY PRN (Reason: pain) RF: 0 aspirin 81 mg Tablet,Chewable 81 mg PO DAILY RF: 0 alum-mag hydroxide-simeth 200-200-20 mg/5 mL Suspension 30 ml PO PRN PRN (Reason: Constipation) RF: 0 vitamin E 400 unit Capsule 400 unit PO DAILY RF: 0 insulin lispro 100 unit/mL Cartridge See Rx Instructions .ROUTE .COMPLEX RF: 0 Artificial Tears(ic-wgae-voug) 1-0.2-0.2 % Drops 1 drp OPHTHALMIC (EYE) Q1H PRN (Reason: Dry Eyes) RF: 0 coenzyme Q10 [CoQ-10] 100 mg Capsule 100 mg PO QAM RF: 0 melatonin 1 mg Tablet 0.5 mg PO BEDTIME PRN (Reason: Insomnia) RF: 0 lutein 20 mg Capsule 20 mg PO DAILY RF: 0 Lactobacillus acidophilus 2 tab PO QAM RF: 0 tamsulosin 0.4 mg Capsule 0.4 mg PO DAILY RF: 0 levothyroxine 50 mcg Tablet 50 mcg PO DAILY RF: 0 docusate sodium [Colace] 100 mg Capsule 100 mg PO BID RF: 0 calcium carbonate 500 mg calcium (1,250 mg) Tablet,Chewable 500 - 1,000 mg PO Q6H PRN (Reason: Heartburn) RF: 0 apixaban 5 mg Tablet 5 mg PO BID RF: 0 dexamethasone 4 mg Tablet 4 mg PO BID RF: 0 polyethylene glycol 3350 17 gram Powder In Packet 17 g PO DAILY PRN (Reason: Constipation) RF: 0 Lantus Solostar U-100 Insulin 100 unit/mL (3 mL) Insulin Pen 8 unit subcut BEDTIME Qty: 3 RF: 0
[2019-06-19] MEDS: SODIUM CHLORIDE 0.9% 1,000 ML 150 ML IV (15:05)
[2019-06-19] MEDS: ONDANSETRON 4 MG/2 ML INJ IV (15:05)
[2019-06-19] MEDS: MORPHINE 2 MG/ML INJ IV (15:05)
[2019-06-19 15:07] LABS: Hematocrit 29.2 % (41-53); Mean Corpuscular HGB Conc 34.3 % (30-36); Mean Corpuscular Hemoglobin 33.2 PG (26-34); Mean Corpuscular Volume 96.9 fL (80-100); Platelet Count 237 X10^3/uL (150-400); Red Blood Cell Count 3.02 X10^6/uL (4.5-5.9); Red Cell Distribution Width 19.1 % (11.6-14.8); White Blood Cell Count 7.9 X10^3/uL (4.5-11.0)
[2019-06-19 15:08] LABS: INR 2.1 (0.9-1.3); Prothrombin Time 24.7 SECONDS (10.1-12.7)
[2019-06-19 15:10] LABS: PTT Partial Thromboplastin Tim 30 SECONDS (26.4-36.2)
[2019-06-19 15:12] LABS: Add Manual Diff / Slide Review YES
[2019-06-19 15:17] LABS: Alanine Aminotransferase 20 IU/L (<50); Albumin 2.7 g/dL (3.5-5.0); Alkaline Phosphatase 234 U/L (38-126); Aspartate Aminotransferase 28 IU/L (17-59); B Type Natriuretic Peptide 245 (<100); BUN Creatinine Ratio 35.6 (6-22); Bilirubin Total 0.7 mg/dL (0.2-1.3); Blood Urea Nitrogen 32 mg/dL (9-20); Calcium 8.1 mg/dL (8.4-10.2); Carbon Dioxide 20 mmol/L (22-32); Chloride 107 mmol/L (98-107); Creatine Kinase < 20 U/L (55-170); Estimated Glomerular Filt Rate > 60.0 mL/min (>60); Globulin 2.6 g/dL (1.7-4.1); Glucose 239 mg/dL (80-110); HEMOLYSIS < 15 (0-50); Lipase 142 U/L (23-300); Potassium 3.3 mmol/L (3.4-5.1); Sodium 134 mmol/L (137-145); Total Protein 5.3 g/dL (6.3-8.2)
[2019-06-19 15:28] LABS: Troponin I 0.019 ng/mL (0.01-0.034)
[2019-06-19 15:59] LABS: Neutrophils Absolute Manual 7268 /uL (3000-5900); Total Cells Counted 100
[2019-06-19 16:01] LABS: Anisocytosis 2+; Poikilocytosis 1+; Polychromasia 1+
--- NOTE | 2019-06-19 16:09 | DI.CT.S_ITS ---
PROCEDURE: CT CHEST ABD PEL W CON INDICATIONS: severe chest pain and ruq pain TECHNIQUE: After the administration of intravenous contrast, 5 mm thick sections acquired from the lung apices to the symphysis. 5 mm coronal and sagittal reformats were performed, with additional 7 mm MIP reformats through the lungs. For radiation dose reduction, the following was used: automated exposure control, adjustment of mA and/or kV according to patient size. COMPARISON: None. FINDINGS: Image quality: Diagnostic. CHEST: Lungs and pleura: Groundglass attenuation is identified diffusely throughout the lungs. No focal consolidation is evident with the exception of mild costophrenic angle atelectasis. There is no pneumothorax. Centrilobular emphysematous changes throughout the lungs are also present. There is a trace right-sided pleural effusion. A 4 mm nodule within the right upper lobe near the minor fissure is present (image 29, series 2). A calcified granuloma is evident within the posterior medial left costophrenic angle (image 44, series 2). No lung mass is evident. Mediastinum: Heart size is enlarged. Coronary artery atherosclerosis is present. A right-sided central line catheter is position with the tip located at the atrial caval junction. No pericardial effusion. No mediastinal or hilar adenopathy by size criteria. Thoracic aorta and central pulmonary arteries are normal in size. There is aortic atherosclerosis. Esophagus is normal in caliber. No hiatal hernia. Chest wall and bones: No axillary or supraclavicular adenopathy by size criteria. Thyroid gland demonstrates a small hypodense nodule along the inferior margin of the right thyroid lobe that measures up to 9 mm in diameter and is not adequately characterized on CT. Age appropriate degenerative changes of the imaged cervicothoracic spine are present. No displaced fractures are evident of the thorax. No suspicious osseous lesions are present. ABDOMEN: Solid organs: There is a moderate-sized heterogeneous loculated fluid collection identified along the superior aspect of the body of the pancreas, which is noted to contain air and demonstrates air fluid levels. A small amount of pneumoperitoneum is seen within the right upper quadrant. The main pancreatic duct is noted to be dilated with multiple cystic foci arising from the body and tail of the pancreas that are not well characterized. Otherwise, the pancreas demonstrates enhancement. There is mild edema within the adjacent mesentery. The liver is slightly hypodense when compared to the spleen. There may be layering sludge within the gallbladder. The spleen is unremarkable. The adrenals and kidneys are within normal limits with the exception of possible right renal calculi and a large simple appearing inferior right renal cyst that measures up to approximately 8.4 cm in diameter. Peritoneum and bowel: Again, there is a heterogeneous fluid collection identified above the level of the pancreas that measures 3.5 x 5.6 x 3.4 cm (image 55, series 2). Adjacent areas of free air are seen within this region. This does not definitively track to the level of the stomach or the duodenum. However, at the gastroduodenal junction, there is a small focus of air that appears to extend beyond the lumen of the bowel (image 61, series 2) which mild adjacent mesenteric edema and a trace amount of adjacent fluid. This air tracks cranially into the mesentery (image 61, series 2). The small bowel loops are nondilated. A moderate amount of residual stool is identified within the colon. Small amount of free fluid is seen within the right upper quadrant. Large amount of stool seen throughout the colon. Distal colonic diverticulosis is evident without convincing evidence of acute diverticulitis. Nodes and vessels: No retroperitoneal or mesenteric adenopathy by size criteria. Aortic atherosclerosis is present with an infrarenal abdominal aortic aneurysm measuring up to 3.0 cm in AP dimension just above the level of the inferior mesenteric artery takeoff. This does not extend into the lower aspect of the abdominal aorta. Iliac arteries demonstrate atherosclerosis without aneurysm or occlusion. Bones: No acute fracture or suspicious osseous lesion is present. Moderate to severe degenerative changes of the lumbar spine are noted. PELVIS: Soft tissues: Urinary bladder is slightly distended, but is otherwise unremarkable. There is a questionable calculus at the left vesicoureteral junction within the urinary bladder (image 117, series 2). The prostate is enlarged and measures approximately 3.5 x 4.9 cm and contains coarse calcifications. Small to moderate-sized bilateral fat-containing inguinal hernias are present. There is no free fluid or loculated fluid collection within the pelvis. Bones: No suspicious bony lesions. No acute pelvic fracture is evident. [id number] degenerative changes of the pelvic joints are noted. Atrophy involving the gluteal muscles is noted (left greater than right). IMPRESSION: 1. Heterogeneous loculated fluid collection likely represents a developing abscess related to perforated bowel, given small amounts of adjacent free air. The most likely source would be at the gastroduodenal junction, given a small tract of air extending from this region into the peritoneal cavity. However, the pancreatitis with an associated abscess cannot be completely excluded. Surgical consultation is recommended. 2. Mild pneumoperitoneum and minimal right upper quadrant ascites. 3. No bowel obstruction. There is probably constipation. 4. Small right-sided pleural effusion with associated atelectasis. 5. Multiple small fluid collections along the course of the pancreas probably represent dilatation of the main pancreatic duct and sidebranches. This may be on the basis of chronic pancreatitis. However, acute pancreatitis with multiple small pseudocysts cannot be excluded and clinical correlation is recommended. When the patient's acute symptoms have resolved, contrast enhanced MRI is recommended to evaluate the pancreas for possible neoplasm. Additional findings: -Small right thyroid nodule. A nonemergent thyroid ultrasound would be of value. -Cardiomegaly and coronary/aortic atherosclerosis. -Small infrarenal abdominal aortic aneurysm. -Probable renal calculi versus vascular calcifications. No hydronephrosis. -Simple large right renal cyst. -Probable hepatic steatosis. -Colonic diverticulosis without diverticulitis. -Bilateral fat-containing hernias. -Enlarged prostate gland. Note: Findings were discussed with Dr. Boles at 1725 hours (PST) on 06/19/19. Dictated by: Riky Ramos M.D. on 06/19/2019 at 16:10 Approved by: Riky Ramos M.D. on 06/19/2019 at 16:29
[2019-06-19] MEDS: HYDROMORPHONE 0.5 MG INJ IV ×3 (16:16→20:02)
[2019-06-19 18:21] LABS: Lactate (Lactic Acid) 4.1 mmol/L (0.7-2.1)
[2019-06-19] MEDS: PIPERACILLIN-TAZO 3.375 GM/50 ML FROZ.PIGGY IV (18:41)
[2019-06-19] MEDS: LIDOCAINE 2% (UROJET) 5 ML GEL TOP (18:41)
[2019-06-19 19:02] LABS: Bacteria Urine None Seen
[2019-06-19 19:03] LABS: Appearance Urine UA CLEAR; Bilirubin Urine UA NEGATIVE (NEGATIVE); Color Urine UA YELLOW; Glucose Urine UA TRACE g/dL (Negative); Ketones Urine UA TRACE (NEGATIVE); Leukocyte Esterase Urine UA NEGATIVE (NEGATIVE); Nitrite Urine UA NEGATIVE (Negative); Occult Blood Urine UA TRACE-INTACT (Negative); Protein Urine UA 1+ (Negative); Specific Gravity Urine UA 1.015 (1.000-1.035); pH Urine UA 5.5 (4.5-8.0)
[2019-06-19 19:10] LABS: Amorphous Sediment Urine 1+; Mucus Urine 2+ (Negative); RBC Urine 0-1/HPF (0-5/HPF); Squamous Epithelial Cell Urine 0-1 /HPF (0-5/HPF); WBC Urine 1-5/HPF (0-5/HPF)
[2019-06-19 19:11] LABS: Culture Indicated Urine Cult Not Indicated
[2019-06-19] MEDS: SODIUM CHLORIDE 0.9% 1,000 ML 250 ML IV (19:35)
[2019-06-19 19:57] LABS: Reflexed Lactate in 2 Hours Y
== END 2019-06-19 20:10 | disposition short-term general hospital (02) ==
PROVIDERS: Emergency Provider Emergency Medicine
DX: K63.1 Perforation of intestine (nontraumatic) (principal); I48.91 Unspecified atrial fibrillation; C43.9 Malignant melanoma of skin, unspecified; C79.31 Secondary malignant neoplasm of brain
CPT/HCPCS: 36415; 51701; 51798; 71045; 71260; 74177; 76705; 80053; 81001; 82550; 83605; 83690; 83880; 84484; 85025; 85610; 85730; 87040; 93005; 96361; 96365; 96375; 96376; 99285; 99291; J1170; J2270; J2405; J2543; Q9967